=== PATIENT | male | born 1970 | race Hispanic/Latino ===

== ENCOUNTER 2019-08-30 14:51 | Inpatient (IN) | payer SELFPAY ==
[2019-08-30] VITALS (7 sets, daily range): BP systolic 83–146; BP diastolic 53–85; PULSE 81–103; RESP 14–20; TEMP 36.4–37.3; O2SAT 98–99; BMI 34.7
--- NOTE | ~2019-08-30 | US_ITS ---
EXAMINATION: US renal BI DATE: 08/31/2019 14:59 INDICATION: Elevated creatinine TECHNIQUE: Multiple grayscale and Doppler ultrasound images of the kidneys were obtained. COMPARISON: None. FINDINGS: The right kidney measures 12.7 x 5.6 x 5.7 cm. The left kidney measures 11.1 x 6.2 x 6.6 cm . The kidneys demonstrate normal parenchymal echogenicity. There is no hydronephrosis. The bladder is normal. IMPRESSION: 1. Normal kidneys without hydronephrosis. Reviewed, dictated and finalized at location A.
--- NOTE | ~2019-08-30 | CT_ITS ---
EXAMINATION: CT brain wo con EXAM DATE: 08/30/2019 16:37 INDICATION: Headache, visual disturbance. Pain. TECHNIQUE: Spiral CT of the head was performed without contrast. Axial, coronal and sagittal images were reviewed. The dose-length product (DLP) for this examination was 605.33 mGy-cm. The exposure w as tailored according to patient size, and iterative reconstruction (ASIR) was used as additional dos e reduction technique. There is no prior study for comparison. FINDINGS: There is no acute intraparenchymal hemorrhage. No evidence of intraparenchymal brain mass lesion. No evidence of acute infarction. Please note that initial head CT has limited sensitivity f or small or acute infarctions. There is mild periventricular and subcortical hypodensity, nonspecific but probably related to small vessel ischemic disease. There is intracranial carotid arteriosclero sis. There are no extra-axial collections. There is no mass effect or midline shift. The orbits ar e unremarkable. Soft tissue is unremarkable. The visualized sinuses and mastoid air cells are well aerated. IMPRESSION: 1. No acute intracranial findings. 2. Chronic age related findings. Reviewed, dictated and finalized at location A.
--- NOTE | ~2019-08-30 | CT_ITS ---
EXAMINATION: CT abdomen pelvis wo con DATE: 08/30/2019 16:37 INDICATION: Abdominal pain TECHNIQUE: Computed tomography (CT) of the abdomen and pelvis was performed without intravenous contr ast. Automated exposure control and iterative reconstruction technique were employed. Exam dose: 117 2.38 mGy-cm total exam DLP. COMPARISON: None. FINDINGS: The lung bases are clear of infiltrate or consolidation. Normal heart size. No pericardial or pleural effusion. The liver, gallbladder, bile ducts, pancreas, pancreatic duct, spleen, and adrenal glands and kidneys are unremarkable on this limited noncontrast examination. No urinary tract calculus or hydroureteron ephrosis. Normal caliber of the abdominal aorta. No intraperitoneal or retroperitoneal or pelvic mass lesion or adenopathy or ascites. Normal appendix. No bowel obstruction, bowel wall thickening, pneumatosis or intraperitoneal free air . Small fat-containing umbilical hernia. Included skeletal structures are unremarkable other than some degenerative changes of the thoracic an d lumbar spine. IMPRESSION: No significant abnormality Reviewed, dictated and finalized at Location A. Reviewed, dictated and finalized at location B. IMPRESSION: No significant abnormality
--- NOTE | ~2019-08-30 | XR_ITS ---
EXAMINATION: XR chest 1V portable EXAM DATE: 08/30/2019 15:55 INDICATION: Headache for one week. TECHNIQUE: Portable AP frontal chest x-ray was obtained. There is no prior study for comparison. FINDINGS: The lungs are clear. There are no pleural effusions. Cardiac silhouette is prominent but magnified on this AP technique. There is no pneumothorax suspected. The bones and soft tissues are unremarkable. IMPRESSION: No acute cardiopulmonary findings. Reviewed, dictated and finalized at location A.
--- NOTE | ~2019-08-30 | MR_ITS ---
EXAMINATION: MR brain/brain stem wo con EXAM DATE: 08/31/2019 15:12 INDICATION: Visual changes. Headache for 2 weeks. TECHNIQUE: Magnetic resonance imaging (MRI) of the brain/brain stem obtained without contrast. James[place] al T1, axial diffusion, gradient echo (T2*), T1, T2, FLAIR sequences obtained. There is no prior st udy for comparison. FINDINGS: There are no areas of restricted diffusion to suggest acute infarction. There is no acute hemorrhage seen on the T2*, a hemosiderin sensitive sequence. No intraparenchymal brain mass. The ve ntricles are normal in size. There are no extra-axial collections. Flow voids are seen in the cereb ral arteries on the T2-weighted sequences consistent with their expected patency. The orbits are unr emarkable. Soft tissue is unremarkable. IMPRESSION: 1. Unremarkable brain MRI examination. Reviewed, dictated and finalized at location A.
--- NOTE | 2019-08-30 15:40 | PC.NURSE ---
Interpeter used to explain ekg, urinal- urine specimen need, iv insertion and lab draw. Pt has no questions at this time.
[2019-08-30 15:41] LABS: Basophils Absolute Auto 0.1 K/mm3 (0.0-0.1); Basophils Percent Auto 0.3 % (0.2-1.2); Eosinophils Absolute Auto 0.2 K/mm3 (0-0.3); Eosinophils Percent Auto 1.5 % (0-4.4); Hematocrit 31.7 % (42.0-52.0); Hemoglobin 10.4 g/dL (14.0-18.0); Immature Granulocyte Absolute 0.06 K/mm3 (0.00-0.031); Immature Granulocyte Percent A 0.4 % (0-0.5); Lymphocytes Absolute Auto 2.03 K/mm3 (0.9-3.2); Mean Corpuscular HGB Conc 32.8 g/dl (32-36); Mean Corpuscular Hemoglobin 29.7 pg (26-34); Mean Corpuscular Volume 90.6 fl (80-100); Mean Platelet Volume 10.5 fl (7.4-10.4); Monocytes Percent Auto 6.9 % (2.6-8.5); Neutrophils Absolute Auto 11.2 K/mm3 (1.3-6.7); Neutrophils Percent Auto 76.9 % (45.5-73.1); Platelet Count Result 228 k/mm3 (150-375); Red Cell Distribution Width 13.6 % (11.5-14.5); White Blood Count 14.6 K/mm3 (4.5-10.0)
--- NOTE | 2019-08-30 15:44 | ECG_ITS ---
Measurements Intervals [place] Rate: 97 P: 32 HI: 148 QRS: 28 QRSD: 93 T: 44 QT: 310 QTc: 394 Interpretive Statements SINUS RHYTHM NORMAL ECG Electronically Signed On 08-31-2019 6:53:18 CDT by De Roca D.O.
[2019-08-30] MEDS: SODIUM CHLORIDE 0.9% IV 1,000 ML 999 ML IV CONT ×2 (15:47→17:07)
--- NOTE | 2019-08-30 15:50 | ED.GENADULT ---
HPI - General Adult General Chief complaint: Headache <Jairo Banegas PA-C - Last Filed: 08/30/19 17:37> Stated complaint: headache <Jairo Banegas PA-C - Last Filed: 08/30/19 17:37> Time Seen by Provider: 08/30/19 15:03 <Jairo Banegas PA-C - Last Filed: 08/30/19 17:37> Source: patient, family and mechanical technician <Jairo Banegas PA-C - Last Filed: 08/30/19 17:37> Mode of arrival: ambulatory <Jairo Banegas PA-C - Last Filed: 08/30/19 17:37> Limitations: language barrier <Jairo Banegas PA-C - Last Filed: 08/30/19 17:37> History of Present Illness HPI narrative: Patient is a 49-year-old male who presents to emergency department for evaluation of diffuse headache and neck pain for the last week had similar occurrence and was seen at an outside hospital and was given ibuprofen with improvement. Patient notes that he has had some intermittent belly pain but denies any current abdominal pain. Denies any URI symptoms . Denies injury or trauma. Has not seen primary care for this . Patient notes that nothing currently has made the pain better or worse other than ibuprofen. Patient notes he has had these symptoms on and off for the last several months. Patient presents in no distress per private vehicle with normal gait . Patient notes he has been compliant with his medications. Patient denies any medication changes. <Jairo Banegas PA-C - Last Filed: 08/30/19 17:37> Related Data Allergies/adverse reactions: Allergies Allergy/AdvReac Type Severity Reaction Status Date / Time No Known Allergies Allergy Verified 08/30/19 14:59 <Jairo Banegas PA-C - Last Filed: 08/30/19 17:37> Review of Systems Review of Systems: All systems reviewed & are unremarkable except as noted in HPI and below <Jairo Banegas PA-C - Last Filed: 08/30/19 17:37> PMFSH Past Medical History Medical History: Medical History Hyperlipidemia Hypertension Tobacco abuse <Jairo Banegas PA-C - Last Filed: 08/30/19 17:37> Social History Social History: Social History Smoking status: Current every day smoker <Jairo Banegas PA-C - Last Filed: 08/30/19 17:37> Exam Narrative: Exam Narrative: GENERAL: Well-appearing, well-nourished, and in no acute distress. HEAD: Normocephalic, atraumatic. EYES: PERRLA and EOMI. ENT: Nares clear, no rhinorrhea or epistaxis. Mucous membranes moist. CHEST: Clear to auscultation. No respiratory distress. No wheezes rales or rhonchi HEART: Regular rate and rhythm. No murmur heard. Normal peripheral pulses. ABDOMEN: Soft, nontender, distended EXTREMITIES: Normal range of motion. No edema. SKIN: Warm, dry, no rash. NEURO: No focal deficits. Alert and oriented x3. Cranial nerves II through XII grossly intact. Normal speech and gait PSYCH: Normal mood and affect. <Jairo Banegas PA-C - Last Filed: 08/30/19 17:37> Course Course Emergency Course: Patient in the room at this time aware of case findings treatment plan and diagnosis. Patient aware of case findings treatment plan and diagnosis mechanical technician was used to communicate with the patient aware of discussions with nephrology and hospitalist service. Patient agreeing to stay in hospital for his acute kidney injury. Patient hydrated in the emergency department and had correction of his hyperkalemia as well <Jairo Banegas PA-C - Last Filed: 08/30/19 17:37> SOUND ENGINEER AUDIO CONTROL/PA Physician Supervision Attestation for Jairo Banegas. [id number] with the patient the patient's , and a friend interprets for us.I explained that he was dehydrated, with kidney damage. We will fix his potassium salt, and get the kidney specialist involved and give him more IV fluids. He and his understand and had the opportunity to ask questions. <Miryam Denny MD - Last Filed: 08/08
[2019-08-30 15:51] LABS: INR 1.1; Prothrombin Time 13.6 Seconds (11.1-14.7)
[2019-08-30 15:52] LABS: Partial Thromboplastin Time 25.9 SECONDS (22.3-36.8)
[2019-08-30 16:04] LABS: Alanine Aminotransferase 17 U/L (4-50); Albumin Level 4.1 g/dL (3.5-5.1); Alkaline Phosphatase 106 U/L (38-126); Anion Gap 20.1 mmol/L (7-16); Aspartate Amino Transferase 18 U/L (17-59); Bilirubin,Total 0.6 mg/dL (0.2-1.3); Blood Urea Nitrogen 82 mg/dL (9-20); Calcium 8.6 mg/dL (8.4-10.2); Carbon Dioxide 19 mmol/L (22-30); Chloride 102 mmol/L (98-107); Estimated Glomerular Filt Rate 12; Glucose 127 mg/dL (75-110); Lipase 218 U/L (23-300); Potassium 6.1 mmol/L (3.4-5.0); Sodium 135 mmol/L (137-145)
[2019-08-30 16:12] LABS: Troponin I < 0.012 ng/mL (0.000-0.034)
--- NOTE | 2019-08-30 16:28 | PM.IMHP ---
H&P: HPI History of Present Illness Chief complaint: headache Narrative: Howard Patel is a 49 year old male [facility] Past Medical History Medical History (Updated 08/30/19 @ 16:23 by Miryam Denny MD) Hyperlipidemia Hypertension Tobacco abuse Social History Social History (Updated 08/30/19 @ 15:53 by Jairo Banegas PA-C) Smoking status: Current every day smoker Meds Home Medications and Allergies Allergies Allergy/AdvReac Type Severity Reaction Status Date / Time No Known Allergies Allergy Verified 08/30/19 14:59 Vital Signs Vital Signs - 24 hr 08/30/19 14:57 08/30/19 15:25 Temperature 99.1 F Pulse Rate 103 H 97 Respiratory Rate 20 15 Blood Pressure 146/85 H 83/53 L Pulse Oximetry 99 99 H&P: Results Labs Labs: Short CBC 08/30/19 Range/Units 15:30 WBC 14.6 H (4.5-10.0) K/mm3 Hgb 10.4 L (14.0-18.0) g/dL Hct 31.7 L (42.0-52.0) % Plt Count 228 (150-375) k/mm3 BMP 08/30/19 15:30 Sodium 135 L Potassium 6.1 H* Chloride 102 Carbon Dioxide 19 L BUN 82 H Creatinine 5.00 H Glucose 127 H Calcium 8.6 Cardiac Enzymes 08/30/19 Range/Units 15:30 Troponin I < 0.012 (0.000-0.034) ng/mL Liver Function 08/30/19 Range/Units 15:30 Total Bilirubin 0.6 (0.2-1.3) mg/dL AST 18 (17-59) U/L ALT 17 (4-50) U/L Alkaline Phosphatase 106 (38-126) U/L Albumin 4.1 (3.5-5.1) g/dL
--- NOTE | 2019-08-30 16:32 | PC.NURSE ---
attempted to medicate pt, pt in ct, will medicate per provider order upon return.
[2019-08-30] MEDS: CALCIUM GLUCONATE 1,000 MG/10 ML VIAL 1000 MG IV PUSH (16:40)
[2019-08-30] MEDS: DEXTROSE 50% 25 GM/50 ML SYRINGE IV PUSH (16:40)
[2019-08-30] MEDS: INSULIN HUMAN REGULAR (*BKC) 100 UNITS/ML 10 UNITS IV PUSH (16:40)
[2019-08-30 17:58] LABS: Anion Gap 17.3 mmol/L (7-16); Blood Urea Nitrogen 79 mg/dL (9-20); Carbon Dioxide 18 mmol/L (22-30); Chloride 106 mmol/L (98-107); Estimated Glomerular Filt Rate 14; Glucose 132 mg/dL (75-110); Potassium 5.3 mmol/L (3.4-5.0); Sodium 136 mmol/L (137-145)
--- NOTE | 2019-08-30 18:35 | ADMGEN ---
This patient, Howard Patel, was admitted to Medical Room 342-01. Patient/family oriented to hospital policies and general routines including ID bracelet, bed and alarms, visiting hours, pain management, procedures, bathroom and other care routines, personal items, smoking policy, room service/diet, and visiting hours. Valuables list has been completed. Information on how to activate the Rapid Response Team has been discussed. Patient/Family are encouraged to report perceived risks to care and to ask questions if they do not understand what they are told or what they should do.
[2019-08-30] MEDS: LACTATED RINGERS 1,000 ML 125 ML IV CONT (18:54)
--- NOTE | 2019-08-30 19:15 | PM.IMHP ---
H&P: HPI History of Present Illness Chief complaint: Headache. Narrative: Howard Patel is a 49-year-old male with benign prostatic hyperplasia, type 2 diabetes mellitus, hypertension, and hyperlipidemia presented to the emergency department earlier this afternoon via private vehicle from home for evaluation of a headache. He is Bulgarian-speaking and thus the following history was obtained with the aid of an compound mixer. He reports a daily headache for approximately 2 weeks time, located in a bandlike fashion around the head. He has a difficult time describing the headache, but he indicates that it radiates into his neck and on occasion it feels like it goes all the way down his back and into his lower abdomen. At times it sounds as though he has photosensitivity, and over the last 2 days he has had blurry vision when out in the heat. He was seen in and discharged from the emergency department at [facility] a couple of weeks ago, and at that time he was told that he had evidence of kidney failure. Since that time he has been taking ibuprofen for his headaches on a daily basis, taking upwards of 800 milligrams of ibuprofen 4 to 5 times a day. Today his BUN and creatinine or 82 in 5.00 respectively, and he is being admitted in this setting. He is frequently outdoors for his job and he wears heavy clothing and thus he sweats quite a bit at work, although he does try to stay hydrated. His appetite has been as per usual and he has not noticed a decrease in urine output or change in his urine color. He denies symptoms of BPH at this time. No new change in medication or addition to his medication regimen. At this time he has no complaints of headache. Review of Systems Review of Systems: Narrative: 12 systems were reviewed with pertinent positives and negatives as per HPI. He denies fever and chills. He denies overt lightheadedness and dizziness.No sinus congestion, rhinorrhea, otalgia, or odynophagia. He has had a mild cough which is nonproductive. No chest pain, fluttering, or feelings of racing heart. He denies shortness of breath. No recent travel or sick contacts. He denies dysuria and hematuria. No diarrhea. He believes his diabetes is well controlled. Except as documented, all other systems were reviewed and are negative. [facility] Past Medical History Medical History (Updated 08/30/19 @ 21:31 by Emily Palm PA-C) Benign prostatic hyperplasia Diabetic peripheral neuropathy Hyperlipidemia Hypertension Insulin dependent type 2 diabetes mellitus Tobacco abuse Surgical History Surgical History (Updated 08/30/19 @ 21:18 by Emily Palm PA-C) No history of previous surgery Family History Family History (Updated 08/30/19 @ 21:18 by Emily Palm PA-C) Other Diabetes mellitus Hypertension Social History Social History (Updated 08/30/19 @ 21:20 by Emily Palm PA-C) Social History: The patient lives in [place] with his . 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 he will occasionally smoke a cigarette or two here and there. He denies alcohol and illicit substance use. He designates his as his surrogate decision maker and he wishes to be a full code. Spiritual care concerns: No Meds Home Medications and Allergies Home Medications Medication Instructions Recorded Confirmed Type albuterol sulfate [Ventolin HFA] 90 mcg INHALATION Q4HWA 08/30/19 08/30/19 History aspirin 81 mg PO DAILY 08/30/19 08/30/19 History atorvastatin 20 mg PO DAILY 08/30/19 08/30/19 History empagliflozin [Jardiance] 10 mg PO DAILY 08/30/19 08/30/19 History fluticasone propionate [Flovent 2 puff INHALATION BID 08/30/19 08/30/19 History HFA] gabapentin 600 mg PO TID 08/30/19 08/30/19 History insulin NPH isoph U-100 human unit SUBCUT BID 08/30/19 History [Novolin N NPH U-100 Insulin] lisinopril 2.5 mg PO DAILY 08/30/19 08/30/19 History metformin 1,000 mg PO DAILY 08/30/19 08/30/19 History
[2019-08-30] MEDS: FAMOTIDINE 20 MG/2 ML VIAL IV PUSH (20:08)
[2019-08-30] MEDS: SODIUM POLYSTYRENE SULFONONATE 15 GM/60 ML BTL 30 GM PO (20:08)
[2019-08-30 22:00] LABS: Glucose Point of Care 116 (65-105)
[2019-08-30 22:15] LABS: Potassium 5.2 mmol/L (3.4-5.0)
[2019-08-30 22:19] LABS: Creatine Kinase 235 U/L (55-170)
[2019-08-30 22:22] LABS: Hemoglobin A1C 10.1 % (<5.7)
[2019-08-30 22:37] LABS: Iron 24 ug/dL (49-181)
[2019-08-30 22:46] LABS: Percent Iron Saturation 8 % (20-50)
[2019-08-30 23:25] LABS: Folic Acid 12.1 ng/mL (2.76->20)
[2019-08-31] VITALS (8 sets, daily range): BP systolic 103–147; BP diastolic 71–73; PULSE 65–91; RESP 12–16; TEMP 36.8–37.1; O2SAT 98–100
[2019-08-31] MEDS: LACTATED RINGERS 1,000 ML 125 ML IV CONT ×2 (03:31→12:06)
[2019-08-31 06:26] LABS: Basophils Percent Auto 0.4 % (0.2-1.2); Eosinophils Absolute Auto 0.2 K/mm3 (0-0.3); Eosinophils Percent Auto 1.9 % (0-4.4); Hematocrit 28.8 % (42.0-52.0); Hemoglobin 9.4 g/dL (14.0-18.0); Immature Granulocyte Absolute 0.03 K/mm3 (0.00-0.031); Immature Granulocyte Percent A 0.3 % (0-0.5); Lymphocytes Absolute Auto 1.81 K/mm3 (0.9-3.2); Mean Corpuscular HGB Conc 32.6 g/dl (32-36); Mean Corpuscular Hemoglobin 29.7 pg (26-34); Mean Corpuscular Volume 90.9 fl (80-100); Mean Platelet Volume 10.4 fl (7.4-10.4); Monocytes Absolute Auto 0.6 K/mm3 (0.1-0.6); Neutrophils Absolute Auto 6.4 K/mm3 (1.3-6.7); Neutrophils Percent Auto 70.4 % (45.5-73.1); Platelet Count Result 210 k/mm3 (150-375); Red Blood Count 3.17 M/mm3 (4.6-6.20); Red Cell Distribution Width 13.6 % (11.5-14.5); White Blood Count 9.1 K/mm3 (4.5-10.0)
[2019-08-31 06:44] LABS: Anion Gap 13.1 mmol/L (7-16); Blood Urea Nitrogen 70 mg/dL (9-20); Calcium 8.4 mg/dL (8.4-10.2); Carbon Dioxide 21 mmol/L (22-30); Chloride 109 mmol/L (98-107); Creatine Kinase 213 U/L (55-170); Estimated CRCL calculation 39 ml/min; Estimated Glomerular Filt Rate 29; Glucose 123 mg/dL (75-110); Magnesium 1.8 mg/dL (1.6-2.3); Phosphorus 3.5 mg/dL (2.5-4.5); Potassium 5.1 mmol/L (3.4-5.0); Sodium 138 mmol/L (137-145)
[2019-08-31] MEDS: ALBUTEROL SULFATE (*SP) AEROSOL 1 PUFF INHALATION ×5 (07:40→23:43)
[2019-08-31] MEDS: FLUTICASONE PROP 44 MCG (*SP) 10.6 GM 2 PUFF INHALATION ×2 (07:43→21:14)
[2019-08-31 07:55] LABS: Glucose Point of Care 130 (65-105)
[2019-08-31] MEDS: ASPIRIN 81 MG ENTERIC TABLET PO (08:25)
[2019-08-31] MEDS: ATORVASTATIN 20 MG TABLET PO (08:25)
[2019-08-31] MEDS: TAMSULOSIN HCL 0.4 MG CAPSULE PO (08:26)
[2019-08-31] MEDS: GABAPENTIN 300 MG CAPSULE 600 MG PO ×3 (08:26→16:48)
[2019-08-31] MEDS: FAMOTIDINE 20 MG/2 ML VIAL IV PUSH ×2 (08:26→20:27)
--- NOTE | 2019-08-31 12:24 | PM.IMPN ---
Progress Note: A&P Assessment and Plan (1) Acute renal failure: Qualifiers: Acute renal failure type: unspecified Qualified Code(s): N17.9 - Acute kidney failure, unspecified Code(s): N17.9 - Acute kidney failure, unspecified Status: Acute Assessment and Plan: Likely multifactorial in etiology to include dehydration and hypoperfusion from hypotension in the setting of NSAID and CASTILLO inhibitor use. He may very well have underlying chronic kidney disease as well given his hypertension and diabetes. No hydronephrosis noted on CT of the abdomen and pelvis. Continue IV fluid rehydration with strict monitoring of I/O. Avoiding NSAIDs and other nephrotoxic medications Lisinopril and metformin on hold currently. Continue to monitor renal function closely Dr. Mendes was consulted from the ED and his recommendations are appreciated. (2) Hyperkalemia: Code(s): E87.5 - Hyperkalemia Status: Acute Assessment and Plan: He received appropriate treatment in the ED, with improvement on repeat labs. Potassium 5.1 today. Continue IV fluid rehydration Continue to monitor potassium levels closely (3) Headache: Qualifiers: Headache chronicity pattern: unspecified pattern Headache type: unspecified Intractability: not intractable Qualified Code(s): R51 - Headache Code(s): R51 - Headache Status: Acute Assessment and Plan: Brain CT showed no acute findings. He complained of ongoing all-over headache for approximately 2 weeks. His headache has since resolved entirely, although he did mention some white spots that appeared throughout his visual field that would come and go with his headache. His vision is normal today. Will obtain brain MRI with and without contrast given visual changes. 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 Blood sugars have been well controlled thus far. Continue sliding scale insulin, Accu-Cheks, and hypoglycemic protocol. His jardiance is nonformulary Metformin is currently on hold (5) Benign prostatic hyperplasia: Code(s): N40.0 - Benign prostatic hyperplasia without lower urinary tract symptoms Status: Acute Assessment and Plan: No urinary symptoms. Continue tamsulosin. Subjective Date/time seen: 07/24/20 12:24 Interval history: Date of service: 08/31/2019 Communication performed via assistance of video nursery supervisor. Patient reports he is feeling better today. His headache has resolved entirely. He notes that he had been having visual changes associated with his headache, but this has also resolved and his vision is normal at this time. He denies abdominal nausea, vomiting, fever, chills, dizziness, lightheadedness, weakness, or fatigue. He is not in any pain. He had a BM this morning. His urine is clear and he denies dysuria or hematuria. He has been eating well. Review of Systems Review of Systems: Narrative: A 12 point review of systems was reviewed with pertinent positives and negatives as per HPI. Exam Narrative: Exam Narrative: Mr. Romo is examined alone today. He is a well nourished 49 year old male who is lying supine in bed. He appears comfortable and is in NARD. HR 79, BP 103/73, RR 15, T 98.3, 98% on room air Neuro: awake, alert and oriented x4, speech clear, no focal neuro deficits noted, normal sensation, strength 5/5 throughout HEENMT: normocephalic, atraumatic, EOMI, sclerae anicteric, moist oral mucosa, tongue midline Neck: supple, no lymphadenopathy Respiratory: clear to auscultation bilaterally, nonlabored breathing Cardio: regular rate, regular rhythm with S1-S2 Abdomen: nondistended, normoactive bowel sounds, soft,
[2019-08-31 13:05] LABS: Glucose Point of Care 202 (65-105)
[2019-08-31] MEDS: INSULIN ASPART (*BKC) 100 UNITS/ML SUB-Q (13:29)
--- NOTE | 2019-08-31 13:36 | PM.CNNEP ---
Assessment and Plan Assessment and plan (1) Acute renal failure: Qualifiers: Acute renal failure type: unspecified Qualified Code(s): N17.9 - Acute kidney failure, unspecified Code(s): N17.9 - Acute kidney failure, unspecified Status: Acute Assessment and Plan: The patient has acute kidney injury. He has several issues that would contribute to this. His blood pressure was low on admission And has probably been low at home as well. he is dehydrated. Probably from the diarrhea he had as well as not eating and drinking properly. He has been on ibuprofen. He is on an CASTILLO-inhibitor which of course exaggerated at the rise of the creatinine for each state of dehydration but does not directly hurt the kidneys. There other causes of renal failure as well, such as obstruction, glomerulonephritis, or interstitial nephritis but he has no signs or symptoms of any of these. At this point will get an ultrasound, urine electrolytes and eosinophils. Depending on how much protein he has we might consider doing further workup for the proteinuria. He is on lisinopril already and is on Jardiance both of which are good for the kidneys. (2) Hyperkalemia: Code(s): E87.5 - Hyperkalemia Status: Acute Assessment and Plan: The patient had a high potassium. This is most likely due to his renal failure. (3) Headache: Qualifiers: Headache chronicity pattern: unspecified pattern Headache type: unspecified Intractability: not intractable Qualified Code(s): R51 - Headache Code(s): R51 - Headache Status: Acute Assessment and Plan: The patient had headache. Head CT was negative. (4) Insulin dependent type 2 diabetes mellitus: Code(s): E11.9 - Type 2 diabetes mellitus without complications; Z79.4 - longterm (current) use of insulin Status: Acute Assessment and Plan: The patient has diabetes. On sliding scale insulin. (5) Benign prostatic hyperplasia: Code(s): N40.0 - Benign prostatic hyperplasia without lower urinary tract symptoms Status: Acute Assessment and Plan: He is on tamsulosin History of Present Illness Reason for Consult Consult date: 08/31/19 Chief Complaint Chief complaint: Headache. History of Present Illness Narrative: Howard is a very pleasant 49-year-old gentleman who has diabetes without retinopathy, reversible airways disease, hyperlipidemia, diabetic neuropathy, and prostatic hypertrophy. The patient came to the emergency room here because he had a headache. He says that he has had a poor appetite and also had some diarrhea yesterday as well. This is all been going on for couple of weeks. He came to the emergency room and they found that his creatinine was elevated so he was admitted. He is getting IV fluids and his creatinine is a little bit better. He says 1 year ago he went to the hospital with similar complaints, headache diarrhea poor appetite. At that time he was told he had renal failure as well. They gave him IV fluids and he got better. Apparently he also went to [facility] emergency room a couple of weeks ago and they told him he had abnormal kidneys as well. In the last few days he has been having headaches so his been taking ibuprofen on a daily basis. He still denies any bloody urine foamy urine kidney stones or bladder infections. He does have some prostate problems and is on tamsulosin. He says he has been making plenty of urine. He does not smoke or drink, however the admission history and physical says he does smoke a cigarette or two every once in a while. Review of Systems Constitutional: Constitutional: Reports no additional constitutional complaints Eyes: Eyes: Reports no additional eye complaints ENT: Reports system reviewed and no additional complaints, except as documented Cardiovascular: Cardiovascular: Reports no additional cardiovascular c
[2019-08-31] MEDS: SODIUM CHLORIDE 0.9% IV 1,000 ML 125 ML IV CONT ×2 (15:39→23:56)
[2019-08-31 16:57] LABS: Glucose Point of Care 172 (65-105)
[2019-09-01] VITALS (7 sets, daily range): BP systolic 130–153; BP diastolic 68–85; PULSE 63–81; RESP 16–20; TEMP 36–36.8; O2SAT 98–100
[2019-09-01 02:33] LABS: Creatinine Urine 47.7 mg/dL; Total Protein Urine Random 23 mg/dL
[2019-09-01 02:37] LABS: Sodium Urine Random 103 meq/L
[2019-09-01 02:56] LABS: Glucose Point of Care 127 (65-105)
[2019-09-01 03:42] LABS: Add Urine Microscopic? YES; Appearance Urine Clear (Clear); Bacteria Urine 2+ /hpf; Bilirubin Urine Negative (Negative); Blood Urine Negative (Negative); Glucose Urine UA 3+ mg/dL (Negative); Ketones Urine Negative (Negative); Leukocyte Esterase Ur Negative LEU/UL (NEGATIVE); Nitrate Urine Negative (Negative); Protein Urine Negative (Negative); RBC Urine 0-2 /hpf (0-2); Specific Grav Ur 1.012 (1.001-1.035); Squamous Epithelial Cell Urine Occasional /hpf (Few); Urobilinogen Urine Negative mg/dL (<2.0); WBC Urine 0-3 /hpf (0-3)
[2019-09-01 04:01] LABS: Color Urine Light Yellow (Yellow)
[2019-09-01 06:33] LABS: Basophils Percent Auto 0.6 % (0.2-1.2); Eosinophils Absolute Auto 0.2 K/mm3 (0-0.3); Eosinophils Percent Auto 2.6 % (0-4.4); Hematocrit 29.5 % (42.0-52.0); Hemoglobin 9.7 g/dL (14.0-18.0); Immature Granulocyte Absolute 0.03 K/mm3 (0.00-0.031); Immature Granulocyte Percent A 0.5 % (0-0.5); Lymphocytes Absolute Auto 1.84 K/mm3 (0.9-3.2); Lymphocytes Percent Auto 28.4 % (18.3-44.2); Mean Corpuscular HGB Conc 32.9 g/dl (32-36); Mean Corpuscular Hemoglobin 29.5 pg (26-34); Mean Corpuscular Volume 89.7 fl (80-100); Mean Platelet Volume 10.2 fl (7.4-10.4); Monocytes Absolute Auto 0.5 K/mm3 (0.1-0.6); Monocytes Percent Auto 8.3 % (2.6-8.5); Neutrophils Absolute Auto 3.9 K/mm3 (1.3-6.7); Neutrophils Percent Auto 59.6 % (45.5-73.1); Platelet Count Result 226 k/mm3 (150-375); Red Blood Count 3.29 M/mm3 (4.6-6.20); Red Cell Distribution Width 13.3 % (11.5-14.5); White Blood Count 6.5 K/mm3 (4.5-10.0)
[2019-09-01 07:15] LABS: Alanine Aminotransferase 17 U/L (4-50); Albumin Level 3.7 g/dL (3.5-5.1); Alkaline Phosphatase 62 U/L (38-126); Anion Gap 11.6 mmol/L (7-16); Aspartate Amino Transferase 21 U/L (17-59); Bilirubin,Total 0.3 mg/dL (0.2-1.3); Blood Urea Nitrogen 35 mg/dL (9-20); Calcium 8.8 mg/dL (8.4-10.2); Carbon Dioxide 24 mmol/L (22-30); Chloride 109 mmol/L (98-107); Estimated CRCL calculation 82 ml/min; Estimated Glomerular Filt Rate > 60; Glucose 125 mg/dL (75-110); Magnesium 1.6 mg/dL (1.6-2.3); Potassium 4.6 mmol/L (3.4-5.0); Sodium 140 mmol/L (137-145)
[2019-09-01 07:48] LABS: Glucose Point of Care 123 (65-105)
[2019-09-01] MEDS: SODIUM CHLORIDE 0.9% IV 1,000 ML 125 ML IV CONT (08:20)
[2019-09-01] MEDS: TAMSULOSIN HCL 0.4 MG CAPSULE PO (08:23)
[2019-09-01] MEDS: ATORVASTATIN 20 MG TABLET PO (08:23)
[2019-09-01] MEDS: ASPIRIN 81 MG ENTERIC TABLET PO (08:23)
[2019-09-01] MEDS: GABAPENTIN 300 MG CAPSULE 600 MG PO ×2 (08:23→13:01)
[2019-09-01] MEDS: FAMOTIDINE 20 MG/2 ML VIAL IV PUSH (08:23)
[2019-09-01] MEDS: FLUTICASONE PROP 44 MCG (*SP) 10.6 GM 2 PUFF INHALATION (08:44)
[2019-09-01] MEDS: ALBUTEROL SULFATE (*SP) AEROSOL 1 PUFF INHALATION ×2 (08:44→13:19)
[2019-09-01 11:41] LABS: Glucose Point of Care 192 (65-105)
--- NOTE | 2019-09-01 16:10 | PM.DS ---
DS: Admitting Diagnosis Admitting Diagnosis Admitting Diagnosis: Acute kidney failure, unspecified DS: Discharge Diagnosis Discharge Diagnosis (1) Acute renal failure: Qualifiers: Acute renal failure type: unspecified Qualified Code(s): N17.9 - Acute kidney failure, unspecified Code(s): N17.9 - Acute kidney failure, unspecified Status: Acute Assessment and Plan: (2) Hyperkalemia: Code(s): E87.5 - Hyperkalemia Status: Acute (3) Headache: Qualifiers: Headache chronicity pattern: unspecified pattern Headache type: unspecified Intractability: not intractable Qualified Code(s): R51 - Headache Code(s): R51 - Headache Status: Acute (4) Insulin dependent type 2 diabetes mellitus: Code(s): E11.9 - Type 2 diabetes mellitus without complications; Z79.4 - long term care social worker (current) use of insulin Status: Acute Assessment and Plan: A1c is 10.1. He will need to follow-up with his PCP outpatient to obtain better glycemic control. (5) Benign prostatic hyperplasia: Code(s): N40.0 - Benign prostatic hyperplasia without lower urinary tract symptoms Status: Acute (6) Iron deficiency anemia: Code(s): D50.9 - Iron deficiency anemia, unspecified Status: Acute Assessment and Plan: He was advised to follow-up with Dr. Monsalve for a colonoscopy and iron supplementation was provided. DS: Summary Hospital Course Reason for hospitalization: Headache Hospital Course: Mr. Patel is a 49 y.o. Welsh-speaking male with PMH significant for benign prostatic hyperplasia, T2DM, hypertension, and hyperlipidemia who presented to the emergency department for the evaluation of headache for two weeks (bandlike, radiating into neck/back) with associated photosensitivity and blurred vision. Refer to the H&P for additional information. He was taking 800mg of ibuprofen 4-5x/day for relief. Initial workup on presentation to the ED revealed WBC 14,600 with neutrophil predominance, Hb 10.4, Hct 31.7, sodium 135, potassium 6.1, chloride 102, CO2 19, BUN 8, Cr 5.0, bilirubin 0.6, AST 18, ALT 17, ALP 106, troponin <0.012, CK 235, UA with 3+ glucose and 2+ bacteria, CXR ith no acute findings, head CT with chronic age related findings and no acute intracranial abnormalities, and unremarkable CT abd/pelvis. He was treated with kayexalate for his hyperkalemia and IV fluids and admitted to the hospitalist service for HERMINIO. Dr. Mendes with nephrology was consulted. His HERMINIO was felt to be multifactorial due to dehydration, hypotension, ibuprofen, and CASTILLO-inhibitor use in the setting of the aformentioned issues. Renal US was performed with no evidence of hydronpehrosis. Brain MRI was performed and was unremarkable with no evidence of infarct, hemorrhage, or masses. His renal function improved with IV fluid rehydration and his Cr was 1.1 and BUN 35 on the day of discharge. He was cleared for discharge from a nephrology standpoint. His headaches resolved and were likely due to dehydration/HERMINIO. He felt much better and requested to go home. He was advised to start iron supplementation as iron studies were consistent with iron deficiency anemia. He was referred to Dr. Monsalve, GI, to schedule a screening colonoscopy due to the presence of REY and age. He was discharged in stable condition on the afternoon of 09/01/19. He was advised to have repeat labs in 1 week and follow-up with his primary care doctor. He was instructed to avoid heavy NSAID use and stay hydrated. Status at Discharge Functional status at discharge: independent ambulation Overall status at discharge: patient is back to baseline Time Spent with Patient Time attestation: Total time spent providing and/or coordinating discharge services: 35 minutes Exam Narrative: Exam Narrative: Vitals at presentation: Temp Pulse Resp BP Pulse Ox 99.1 F
[2019-09-01 16:29] LABS: Glucose Point of Care 200 (65-105)
== END 2019-09-01 14:40 | disposition home or self-care (01) | DRG 469 ==
LOC: ANHED 17:46 → ANH3MED 17:50
PROVIDERS: Emergency Medicine Emergency Medical Services; Internal Medicine Nephrology; Physician Assistant; Admitting Provider Internal Medicine; Emergency Provider Emergency Medicine; Visit Provider Physician Assistant
DX: N17.9 Acute kidney failure, unspecified (principal); E86.0 Dehydration; E87.5 Hyperkalemia; N40.0 Benign prostatic hyperplasia without lower urinary tract symptoms; R51 Headache; Z79.4 Long term (current) use of insulin; I95.9 Hypotension, unspecified; F17.210 Nicotine dependence, cigarettes, uncomplicated; E11.42 Type 2 diabetes mellitus with diabetic polyneuropathy; I10 Essential (primary) hypertension
CPT/HCPCS: 36415; 70450; 70551; 71045; 74176; 76775; 80048; 80053; 81001; 82550; 82570; 82607; 82728; 82746; 83036; 83540; 83550; 83690; 83735; 84100; 84132; 84156; 84300; 84443; 84484; 85025; 85610; 85730; 85999; 93005; 94640; 96361; 96374; 96375; 99285; A9270; J0131; J0610; J1815; J7030; J7120

== ENCOUNTER 2019-09-08 15:08 | Emergency (ER) | payer SELFPAY ==
[2019-09-08 15:09] VITALS: BP 137/75; PULSE 88; RESP 18; TEMP 36.6; O2SAT 98
--- NOTE | 2019-09-08 15:36 | ED.BACK ---
HPI - Back Pain/Injury General Chief Complaint: Back Pain/Injury Stated Complaint: back pain Time Seen by Provider: 09/08/19 15:18 History of Present Illness HPI Narrative: Pain in his neck and upper back for the past 3 days. Radiates into his head and causes headaches. He says that he was having this pain when he was admitted to the hospital a week ago for kidney failure, but nothing was done for hime. He has not made a follow-up appoinment with a PCP yet. Related Data Home Medications Medication Instructions Recorded Confirmed Flovent HFA 2 puff INHALATION BID 08/30/19 08/30/19 Jardiance 10 mg PO DAILY 08/30/19 08/30/19 Novolin N NPH U-100 Insulin 15 unit SUBCUT BID 08/30/19 08/31/19 albuterol sulfate [Ventolin HFA] 90 mcg INHALATION Q4HWA 08/30/19 08/30/19 aspirin 81 mg PO DAILY 08/30/19 08/30/19 atorvastatin 20 mg PO DAILY 08/30/19 08/30/19 gabapentin 600 mg PO TID 08/30/19 08/30/19 lisinopril 2.5 mg PO DAILY 08/30/19 08/30/19 tamsulosin 0.4 mg PO DAILY 08/30/19 08/30/19 Allergies Allergy/AdvReac Type Severity Reaction Status Date / Time No Known Allergies Allergy Verified 09/08/19 15:12 Review of Systems Review of Systems: All systems reviewed & are unremarkable except as noted in HPI and below Constitutional: Constitutional: Denies fever(s) Eyes: Eyes: Denies change in vision ENT: Denies sore throat Cardiovascular: Cardiovascular: Denies chest pain Respiratory: Respiratory: Denies dyspnea Gastrointestinal: Gastrointestinal: Denies abdominal pain, Denies nausea and Denies vomiting Genitourinary: Genitourinary: Denies dysuria Musculoskeletal: Musculoskeletal: Reports back pain Neurologic: Reports headache(s) [facility] Past Medical History Medical History Benign prostatic hyperplasia Diabetic peripheral neuropathy Hyperlipidemia Hypertension Insulin dependent type 2 diabetes mellitus Tobacco abuse Surgical History Surgical History No history of previous surgery Family History Family History Other Diabetes mellitus Hypertension Social History Social History Social History: The patient lives in [place] with his . 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 he will occasionally smoke a cigarette or two here and there. He denies alcohol and illicit substance use. He designates his as his surrogate decision maker and he wishes to be a full code. Spiritual care concerns: No Exam Const: General: no acute distress and alert Orientation/consciousness: patient oriented x3 HENMT: Head: normal to inspection Resp: Effort & Inspection: normal respiratory effort Auscultation: clear to auscultation bilaterally Cardio: Rate: regular rate Rhythm: regular rhythm Back/Spine/Pelvis: Other: Tender over paraspinal muscles, trapezius, and occiput bilaterally. Skin: General skin exam: normal color Rashes: no rashes Wounds: no wounds Neuro: General: patient oriented x3 and moves all extremities Speech: normal speech Extrem: General: normal to inspection and no edema Course Vital Signs Vital signs: Vital Signs Temperature 36.6 C 09/08/19 15:09 Pulse Rate 88 09/08/19 15:09 Respiratory Rate 18 09/08/19 15:09 Blood Pressure 137/75 09/08/19 15:09 Pulse Oximetry 98 09/08/19 15:09 Temperature 36.8 C 09/08/19 16:43 Pulse Rate 81 09/08/19 16:43 Respiratory Rate 16 09/08/19 16:43 Blood Pressure 141/69 H 09/08/19 16:43 Pulse Oximetry 99 09/08/19 16:43 Discharge Plan Discharge Clinical Impression: Neck pain, Back pain of thoracolumbar region Patient Disposition: Home, Self-Care Condition: Stable Instructions: Back Pain (ED) Additional Instructions: Follow-up with Marielle Yates as indicated on
[2019-09-08] MEDS: CYCLOBENZAPRINE HCL 10 MG TABLET PO (16:42)
[2019-09-08 16:43] VITALS: BP 141/69; PULSE 81; RESP 16; TEMP 36.8; O2SAT 99
== END 2019-09-08 16:43 | disposition home or self-care (01) ==
PROVIDERS: Emergency Provider Emergency Medicine
DX: M54.2 Cervicalgia (principal); M54.6 Pain in thoracic spine; M54.5 Low back pain; N40.0 Benign prostatic hyperplasia without lower urinary tract symptoms; E11.42 Type 2 diabetes mellitus with diabetic polyneuropathy; E78.5 Hyperlipidemia, unspecified; I10 Essential (primary) hypertension; F17.210 Nicotine dependence, cigarettes, uncomplicated
CPT/HCPCS: 99283; A9270

== ENCOUNTER 2019-10-03 20:54 | Observation (INO) | payer SELFPAY ==
[2019-10-03] VITALS (9 sets, daily range): BP systolic 76–115; BP diastolic 52–98; PULSE 89–114; RESP 12–20; TEMP 36.5; O2SAT 96–98
--- NOTE | ~2019-10-03 | CT_ITS ---
EXAMINATION: CT BRAIN W/O DATE: 10/03/2019 22:28 INDICATION: Headache after fall TECHNIQUE: Computed tomography (CT) of the head was performed without intravenous contrast. The dose- length product was 605.33 mGy-cm. Automated exposure control and iterative reconstruction technique w ere employed. COMPARISON: CT dated 08/30/2019 FINDINGS: Normal brain parenchymal volume for age. Normal alcala-white differentiation. No acute intrac ranial hemorrhage, infarction, mass or mass effect. No ventriculomegaly or midline shift. Midline sagittal images demonstrate a normal corpus callosum, c raniovertebral junction and sella turcica. Basilar cisterns are patent. Mucosal thickening of the ethmoid sinuses. Mastoids are pneumatized. No depressed skull fractures. IMPRESSION: 1. No acute intracranial abnormality. 2: Mild sinus disease. Reviewed, dictated and finalized at location A.
--- NOTE | ~2019-10-03 | XR_ITS ---
EXAMINATION: XR chest 1V portable 10/03/2019 22:29 INDICATION: Status post fall. Weakness. Hypertension. PROCEDURE: AP portable chest COMPARISON: 08/30/2019 FINDINGS: The lungs are clear. The cardiomediastinal silhouette is within normal limits. There are no pleural effusions. There is no pneumothorax suspected. IMPRESSION: 1: NO ACUTE CARDIOPULMONARY DISEASE. Reviewed, dictated and finalized at location A.
--- NOTE | ~2019-10-03 | CT_ITS ---
EXAMINATION: CT cervical spine wo con DATE: 10/03/2019 22:28 INDICATION: Neck pain after fall TECHNIQUE: Computed tomography (CT) of the cervical spine was performed without intravenous contrast. The dose-length product was 513 mGy-cm. Automated exposure control and iterative reconstruction tech [employer] were employed. COMPARISON: None FINDINGS: Straightening of cervical lordosis. Vertebral body and disc heights are preserved. There is an old C7 spinous process fracture. No spinal stenosis. Lung apices are normal. Odontoid process is normal. No significant paraspinal soft tissue abnormality. Thyroid gland is unremarkable. IMPRESSION: 1. No acute abnormality of the cervical spine. Reviewed, dictated and finalized at location A.
--- NOTE | 2019-10-03 21:07 | ECG_ITS ---
Measurements Intervals [place] Rate: 107 P: 38 ID: 137 QRS: 1 QRSD: 90 T: 52 QT: 317 QTc: 423 Interpretive Statements SINUS TACHYCARDIA POOR R WAVE PROGRESSION, ANTERIOR LEADS MINIMAL Q WAVES- INFERIOR LEADS ST ELEVATION IN ANTEROLATERAL LEADS- PROBABLY EARLY REPOLARIZATION BASELINE ARTIFACT- I, III, AVR, AVL, AVF ABNORMAL ECG Electronically Signed On 10-04-2019 7:26:10 CDT by De Roca D.O.
[2019-10-03 21:22] LABS: Basophils Absolute Auto 0.1 K/mm3 (0.0-0.1); Basophils Percent Auto 0.4 % (0.2-1.2); Eosinophils Absolute Auto 0.2 K/mm3 (0-0.3); Eosinophils Percent Auto 1.5 % (0-4.4); Hematocrit 35.1 % (42.0-52.0); Immature Granulocyte Absolute 0.12 K/mm3 (0.00-0.031); Immature Granulocyte Percent A 0.8 % (0-0.5); Lymphocytes Absolute Auto 3.48 K/mm3 (0.9-3.2); Lymphocytes Percent Auto 23.7 % (18.3-44.2); Mean Corpuscular HGB Conc 34.2 g/dl (32-36); Mean Corpuscular Hemoglobin 30.5 pg (26-34); Mean Corpuscular Volume 89.3 fl (80-100); Mean Platelet Volume 9.9 fl (7.4-10.4); Monocytes Absolute Auto 0.8 K/mm3 (0.1-0.6); Monocytes Percent Auto 5.5 % (2.6-8.5); Neutrophils Percent Auto 68.1 % (45.5-73.1); Platelet Count Result 229 k/mm3 (150-375); Red Blood Count 3.93 M/mm3 (4.6-6.20); Red Cell Distribution Width 14.1 % (11.5-14.5); White Blood Count 14.7 K/mm3 (4.5-10.0)
[2019-10-03 21:31] LABS: Prothrombin Time 12.9 Seconds (11.1-14.7)
[2019-10-03 21:32] LABS: Partial Thromboplastin Time 23.1 SECONDS (22.3-36.8)
[2019-10-03 21:34] LABS: Lactic Acid Reflex 2.1 mmol/L (0.7-2.1)
[2019-10-03 21:36] LABS: Alanine Aminotransferase 29 U/L (4-50); Albumin Level 4.1 g/dL (3.5-5.1); Alkaline Phosphatase 143 U/L (38-126); Anion Gap 15 mmol/L (8-16); Aspartate Amino Transferase 36 U/L (17-59); Bilirubin,Total 0.3 mg/dL (0.2-1.3); Blood Urea Nitrogen 88 mg/dL (9-20); CRP 1.5 mg/dL (<1.0); Calcium 8.5 mg/dL (8.4-10.2); Carbon Dioxide 21 mmol/L (22-30); Chloride 94 mmol/L (98-107); Estimated CRCL calculation 20 ml/min; Estimated Glomerular Filt Rate 16; Glucose 409 mg/dL (75-110); Potassium 4.6 mmol/L (3.4-5.0); Sodium 130 mmol/L (137-145)
[2019-10-03] MEDS: SODIUM CHLORIDE 0.9% IV 1,000 ML 999 ML IV CONT ×2 (21:53→23:40)
--- NOTE | 2019-10-03 21:53 | PC.NURSE ---
called lab to add on
[2019-10-03 22:03] LABS: Alveolar/Arterial O2 Gradient 20.1 mmHg; Base Excess ABG -7.5 mEq/l (+/-2.0); Carboxyhemoglobin 0.8 % THb (0-2.0); Fractional Inspired Oxygen 21 %; HCO3 ABG 18.6 mEq/l (22.0-26.0); Methemoglobin ABG 0.3 %THb (0-1.5); Oxygen Saturation ABG 94.8 % (95.0-100.0); PCO2 ABG 40.2 mmHg (35.0-45.0); PO2 ABG 81.5 mmHg (80.0-100.0); PO2 FiO2 Ratio Arterial Blood 3.88 %; Reduced Hemoglobin 5.9 %THb (0-5.0); Total Hemoglobin 11.4 g/dL (12.0-18.0)
[2019-10-03 22:05] LABS: Device ROOM AIR; Modified Allen's Test Pass; Site Drawn LEFT RADIAL; pH ABG 7.284 (7.350-7.450)
[2019-10-03 22:17] LABS: Creatine Kinase 1518 U/L (55-170); Magnesium 2.3 mg/dL (1.6-2.3); Phosphorus 6.4 mg/dL (2.5-4.5)
[2019-10-03 22:22] LABS: Beta-Hydroxybutyrate/Acetoacetate 0.08 mmol/L (0.02-0.27)
[2019-10-03] MEDS: SODIUM CHLORIDE 0.9% IV 1,000 ML 999 ML (22:35)
[2019-10-03 23:20] LABS: Add Urine Microscopic? YES; Appearance Urine Clear (Clear); Bacteria Urine 2+ /hpf; Bilirubin Urine Negative (Negative); Blood Urine Negative (Negative); Color Urine Yellow (Yellow); Glucose Urine UA 3+ mg/dL (Negative); Hyaline Casts Urine 30-49 /lpf; Ketones Urine Negative (Negative); Leukocyte Esterase Ur Negative LEU/UL (Negative); Mucus Urine Rare /lpf; Nitrate Urine Negative (Negative); Protein Urine Negative (Negative); RBC Urine 0-2 /hpf (0-2); Specific Grav Ur 1.017 (1.001-1.035); Urobilinogen Urine Negative mg/dL (<2.0); WBC Urine 0-3 /hpf
--- NOTE | 2019-10-03 23:20 | ED.GENADULT ---
HPI - General Adult General Chief complaint: Weakness Stated complaint: neck pain. Time Seen by Provider: 10/03/19 22:01 History of Present Illness HPI narrative: Patient is a 49-year-old male who presents ER with multiple complaints. Patient has been feeling increasingly weak and has been having dizziness with change in position over the last few days. Weakness started over the last week. Also over the last days developed some headache. 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 Reports normal oral intake of food and water. No chest pain/chest pressure/runny nose/sore throat/cough. No known COVID exposures. No dysuria/abdominal pain/nausea/vomiting. No history of kidney failure but does have history of high blood pressure and diabetes. Related Data Home Medications Medication Instructions Recorded Confirmed Flovent HFA 2 puff INHALATION BID 08/30/19 08/30/19 Jardiance 10 mg PO DAILY 08/30/19 08/30/19 Novolin N NPH U-100 Insulin 15 unit SUBCUT BID 08/30/19 08/31/19 albuterol sulfate [Ventolin HFA] 90 mcg INHALATION Q4HWA 08/30/19 08/30/19 aspirin 81 mg PO DAILY 08/30/19 08/30/19 atorvastatin 20 mg PO DAILY 08/30/19 08/30/19 gabapentin 600 mg PO TID 08/30/19 08/30/19 lisinopril 2.5 mg PO DAILY 08/30/19 08/30/19 tamsulosin 0.4 mg PO DAILY 08/30/19 08/30/19 Allergies Allergy/AdvReac Type Severity Reaction Status Date / Time No Known Allergies Allergy Verified 10/03/19 21:06 Review of Systems Review of Systems: All systems reviewed & are unremarkable except as noted in HPI and below Constitutional: Constitutional: Denies chills, Denies fever(s) and Denies weakness Eyes: Eyes: Denies change in vision ENT: Denies nasal congestion and Denies sore throat Cardiovascular: Cardiovascular: Denies chest pain, Denies rapid heart rate and Denies radiating jaw, neck or arm pain Respiratory: Respiratory: Denies cough, Denies dyspnea and Denies wheezing Gastrointestinal: Gastrointestinal: Denies abdominal pain, Denies nausea and Denies vomiting Neurologic: Reports dizziness, Denies syncope, Denies focal weakness, Denies numbness and Reports weakness PMFSH Social History Social History Social History: The patient lives in [place] with his . 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 he will occasionally smoke a cigarette or two here and there. He denies alcohol and illicit substance use. He designates his as his surrogate decision maker and he wishes to be a full code. Spiritual care concerns: No Exam Narrative: Exam Narrative: GENERAL: Well-appearing, well-nourished, and in no acute distress. HEAD: Normocephalic, atraumatic. ENT: Mucous membranes moist. CHEST: Clear to auscultation. No respiratory distress. HEART: Regular rate and rhythm. Normal peripheral pulses. ABDOMEN: Soft, nontender, nondistended EXTREMITIES: Normal range of motion. No edema. SKIN: Warm, dry, no rash. NEURO: Alert and oriented x3. PSYCH: Normal mood and affect. Course Course Emergency Course: Informed of results. Admit for hydration. Accepted by hospitalist. Vital Signs Vital signs: Vital Signs Temperature 97.7 F 10/03/19 20:57 Pulse Rate 113 H 10/03/19 20:57 Respiratory Rate 20 10/03/19 20:57 Blood Pressure 96/52 L 10/03/19 20:57 Pulse Oximetry 98 10/03/19 20:57 Temperature 97.8 F 10/04/19 01:05 Pulse Rate 82 10/04/19 01:05 Respiratory Rate 20 10/04/19 01:05 Blood Pressure 120/68 10/04/19 01:05 Pulse Oximetry 99 10/04/19 01:05 Medical Decision Making Vital Signs Vital Signs: Vital Signs Temperature 97.7 F 10/03/19 20:57 Pulse Rate 113 H 10/03/19 20:57 Respiratory Rate 20 10/03/19 20:57 Blood Pressure 96/52 L 10/03/19 20:57 Pulse Oximetry 98 10/03/19 20:57 Temperature 97.8 F 10/04/19 01:05 Pulse Rate 82 10/04/19 01:05 Respiratory Rate 20 10/04/19 01:05 Blood Pressure 120/68
[2019-10-04] VITALS (9 sets, daily range): BP systolic 119–141; BP diastolic 68–83; PULSE 82–110; RESP 12–20; TEMP 36.1–36.9; O2SAT 96–100; BMI 35.8
[2019-10-04 00:22] LABS: Reflex Lactic Acid Yes or No Add Lactic
[2019-10-04 00:48] LABS: Lactic Acid 1.2 mmol/L (0.7-2.1)
[2019-10-04 06:49] LABS: Hematocrit 31.6 % (42.0-52.0); Hemoglobin 10.7 g/dL (14.0-18.0); Mean Corpuscular HGB Conc 33.9 g/dl (32-36); Mean Corpuscular Hemoglobin 30.5 pg (26-34); Mean Platelet Volume 9.7 fl (7.4-10.4); Platelet Count Result 205 k/mm3 (150-375); Red Blood Count 3.51 M/mm3 (4.6-6.20); White Blood Count 10.1 K/mm3 (4.5-10.0)
[2019-10-04 07:22] LABS: Anion Gap 7 mmol/L (8-16); Blood Urea Nitrogen 70 mg/dL (9-20); Calcium 8.1 mg/dL (8.4-10.2); Carbon Dioxide 23 mmol/L (22-30); Chloride 106 mmol/L (98-107); Creatine Kinase 1284 U/L (55-170); Estimated CRCL calculation 44 ml/min; Estimated Glomerular Filt Rate 35; Glucose 227 mg/dL (75-110); Magnesium 2.2 mg/dL (1.6-2.3); Phosphorus 4.3 mg/dL (2.5-4.5); Sodium 136 mmol/L (137-145)
[2019-10-04 09:44] LABS: Glucose Point of Care 230 (65-105)
[2019-10-04] MEDS: INSULIN ASPART (*BKC) 100 UNITS/ML SUB-Q ×3 (09:49→17:19)
[2019-10-04] MEDS: SODIUM CHLORIDE 0.9% IV 1,000 ML 150 ML IV CONT ×2 (09:51→16:43)
[2019-10-04 12:35] LABS: Glucose Point of Care 291 (65-105)
--- NOTE | 2019-10-04 16:59 | PM.IMHP ---
H&P: HPI History of Present Illness Date/Time: 10/04/19 1200 Chief complaint: rhabdomyolysis, aron Narrative: The supervising physician for this history and physical is Dr Alberto Wright. Howard Patel is a 49 year old male with history of insulin-dependent type 2 diabetes mellitus, hypertension, hyperlipidemia, benign prostatic hyperplasia presented to the ED for evaluation of generalized weakness. Mr. Romo is Dominican-speaking and a [employer] video ict customer support officer was used for this encounter. The patient tells me he has been feeling more weak over the last 1 week and he fell 2 days ago. He tells me he did not hit his head or lose consciousness when he fell. He denies dizziness or lightheadedness, felt like his legs gave out from under him. It is noted that the patient was hospitalized here 1 month ago for dehydration and acute renal failure that was felt to be related to working outside in the heat. 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 During his previous admission, he was having significant headaches which he tells me have now improved. Over the last 2 days he noted he was having abdominal cramping, which is now resolved today. He denies any nausea, vomiting, diarrhea, constipation. Last bowel movement was this morning. He denies any chest pain or shortness of breath. Creatine kinase 1518 on arrival, Cr 3.9. CT brain, CT C-spine, and chest x-ray are unremarkable. Patient is admitted to the hospitalist service for management of acute renal failure and rhabdomyolysis, suspect again related to heat exhaustion. Review of Systems Review of Systems: Narrative: He is feeling better today. He denies any headache, dizziness. Denies any chest pain, shortness of breath, cough, fevers, chills, or sick contacts. He was having some abdominal cramping over the last 2 days, which is resolved today. No nausea, vomiting, diarrhea, hematochezia, melena. Twelve systems were reviewed with pertinent positives and negatives as per HPI. [facility] Surgical History Surgical History No history of previous surgery Family History Family History Other Diabetes mellitus Hypertension Social History Social History (Updated 10/04/19 @ 17:09 by Darby Ngo PA-C) Social History: The patient lives in [place] with his . 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 He tells me he smokes around 3-4 cigarettes per day. He denies alcohol and illicit substance use. He designates his as his surrogate decision maker and he wishes to be full code status. Years smoked: 40 Smoking status: Current every day smoker Tobacco type: cigarettes Second hand tobacco smoke exposure: No Alcohol intake: never Substance use: never Gender identity (if verbalized by the patient): Male Spiritual care concerns: No Meds Home Medications and Allergies Home Medications Medication Instructions Recorded Confirmed Type Jardiance 10 mg PO DAILY 08/30/19 10/04/19 History Novolin N NPH U-100 Insulin 15 unit SUBCUT BID 08/30/19 10/04/19 History aspirin 81 mg PO DAILY 08/30/19 10/04/19 History atorvastatin 20 mg PO HS 08/30/19 10/04/19 History gabapentin 600 mg PO TID 08/30/19 10/04/19 History lisinopril 2.5 mg PO DAILY 08/30/19 10/04/19 History tamsulosin 0.4 mg PO DAILY 08/30/19 10/04/19 History cyclobenzaprine 10 mg PO TID PRN #20 tablet 09/08/19 10/04/19 Rx metformin 1,000 mg PO DAILY 10/04/19 10/04/19 History methylprednisolone 4 mg PO UD DOSE PK 10/04/19 10/04/19 History Allergies Allergy/AdvReac Type Severity Reaction Status Date / Time No Known Allergies Allergy Verified 10/03/19 21:06 Vital Signs Last Vital Signs Temp 97.0 F L 10/04/19 16:00 Pulse 85 10/04/19 16:00 Resp 18 10/04/19 16:00 BP 141/79 H 10/04/19 16:00 Pulse Ox 99 10/04/19 16:00 Exam Narrative: Exam Na
[2019-10-04] MEDS: GABAPENTIN 300 MG CAPSULE 600 MG PO (17:23)
[2019-10-04] MEDS: INSULIN HUMAN NPH (*BKC) 100 UNITS/ML 10 UNITS SUB-Q (17:32)
[2019-10-04 17:52] LABS: Glucose Point of Care 224 (65-105)
[2019-10-04 21:36] LABS: Glucose Point of Care 194 (65-105)
[2019-10-05 02:00] VITALS: BP 144/83; PULSE 86; RESP 20; TEMP 36.9; O2SAT 98
[2019-10-05] MEDS: SODIUM CHLORIDE 0.9% IV 1,000 ML 150 ML IV CONT ×2 (04:57→11:04)
[2019-10-05 06:00] VITALS: BP 129/75; PULSE 84; RESP 20; TEMP 36.8; O2SAT 99
[2019-10-05 06:39] LABS: Glucose Point of Care 165 (65-105)
[2019-10-05 07:02] LABS: Hemoglobin 10.8 g/dL (14.0-18.0)
[2019-10-05 07:23] LABS: Alanine Aminotransferase 27 U/L (4-50); Albumin Level 3.6 g/dL (3.5-5.1); Alkaline Phosphatase 89 U/L (38-126); Anion Gap 5 mmol/L (8-16); Aspartate Amino Transferase 33 U/L (17-59); Bilirubin,Total 0.3 mg/dL (0.2-1.3); Blood Urea Nitrogen 37 mg/dL (9-20); Calcium 8.7 mg/dL (8.4-10.2); Carbon Dioxide 24 mmol/L (22-30); Chloride 108 mmol/L (98-107); Creatine Kinase 779 U/L (55-170); Estimated CRCL calculation 86 ml/min; Estimated Glomerular Filt Rate > 60; Glucose 178 mg/dL (75-110); Potassium 4.7 mmol/L (3.4-5.0); Sodium 137 mmol/L (137-145)
[2019-10-05] MEDS: GABAPENTIN 300 MG CAPSULE 600 MG PO ×3 (08:24→17:28)
[2019-10-05] MEDS: ASPIRIN 81 MG ENTERIC TABLET PO (08:24)
[2019-10-05] MEDS: INSULIN HUMAN NPH (*BKC) 100 UNITS/ML 10 UNITS SUB-Q ×2 (08:25→17:31)
[2019-10-05] MEDS: lisinopriL 2.5 MG TABLET PO (08:29)
[2019-10-05 09:38] LABS: Glucose Point of Care 162 (65-105)
[2019-10-05 10:00] VITALS: BP 153/83; PULSE 97; RESP 16; TEMP 36.7; O2SAT 100
[2019-10-05 12:40] LABS: Glucose Point of Care 141 (65-105)
--- NOTE | 2019-10-05 12:55 | P.PNIM_ITS ---
Progress Note: A&P Assessment and Plan (1) Acute renal failure: Qualifiers: Acute renal failure type: unspecified Qualified Code(s): N17.9 - Acute kidney failure, unspecified Code(s): N17.9 - Acute kidney failure, unspecified Status: Acute Assessment and Plan: * Patient has acute renal failure may be secondary to rhabdomyolysis, dehydration and heat exhaustion. He was also taking a lot of ibuprofen for headaches recently which may have contributed. * I have educated him using the paraffin plant operator, to avoid ibuprofen and use Tylenol for headaches instead. * Cr 3.9 on arrival, improved to 1.0 today. * Admitted one month ago for same, Cr was 5.0 on arrival at that time and 1.1 on day of discharge after rehydration with IV fluids. * Will continue IV fluids, avoid nephrotoxic agents (hold his metformin); monitor renal function daily. (2) Rhabdomyolysis: Qualifiers: Rhabdomyolysis type: non-traumatic Qualified Code(s): M62.82 - Rhabdomyolysis Code(s): M62.82 - Rhabdomyolysis Status: Acute Assessment and Plan: * [place] to be secondary to heat exhaustion. 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 * CK improving. Continue IV hydration and recheck CK in AM. Anticipate possible discharge tomorrow. (3) Insulin dependent type 2 diabetes mellitus: Code(s): E11.9 - Type 2 diabetes mellitus without complications; Z79.4 - group home (current) use of insulin Status: Acute Assessment and Plan: * Hgb A1c was 10.1 last month. He takes NPH insulin, Jardiance, metformin. * Will continue an insulin regimen here. Hold metformin, Jardiance nonformulary. * Monitor with Accu-Cheks and adjust treatment as needed, cover with SSI. (4) Iron deficiency anemia: Qualifiers: Iron deficiency anemia type: unspecified iron deficiency Qualified Code(s): D50.9 - Iron deficiency anemia, unspecified Code(s): D50.9 - Iron deficiency anemia, unspecified Status: Chronic Assessment and Plan: * Chronic normocytic anemia. Iron studies from last admission are consistent with iron deficiency anemia. * H&H are low but stable, no evidence of acute bleeding. Monitor CBC. * Continue oral iron supplementation. (5) Hyperlipidemia: Qualifiers: Hyperlipidemia type: unspecified Qualified Code(s): E78.5 - Hyperlipidemia, unspecified Code(s): E78.5 - Hyperlipidemia, unspecified Status: Acute Assessment and Plan: * We will hold his home statin therapy in light of his acute rhabdomyolysis. Subjective Date/time seen: 10/05/19 12:45 Interval history: Mr. Romo is a pleasant 49yo M admitted for acute renal failure and rhabdomyolysis. He is Korean-speaking and a [employer] interpreter is used for my encounter. He reports feeling well today, slept okay. Not having a headache, abdominal pain, nausea or vomiting. He denies chest pain or shortness of breath. He is hungry but otherwise offers no complaints. Review of Systems Review of Systems: Narrative: Twelve systems were reviewed with pertinent positives and negatives as per HPI. Exam Narrative: Exam Narrative: General: Well-developed, well-nourished male resting sitting up on the edge of the bed in no acute distress. HEENT: Normocephalic, atraumatic, EOMI, oropharynx clear. Chest: Lungs clear to auscultat
--- NOTE | 2019-10-05 12:55 | PM.IMPN ---
Progress Note: A&P Assessment and Plan (1) Acute renal failure: Qualifiers: Acute renal failure type: unspecified Qualified Code(s): N17.9 - Acute kidney failure, unspecified Code(s): N17.9 - Acute kidney failure, unspecified Status: Acute Assessment and Plan: Patient has acute renal failure may be secondary to rhabdomyolysis, dehydration and heat exhaustion. He was also taking a lot of ibuprofen for headaches recently which may have contributed. I have educated him using the medical office supervisor, to avoid ibuprofen and use Tylenol for headaches instead. Cr 3.9 on arrival, improved to 1.0 today. Admitted one month ago for same, Cr was 5.0 on arrival at that time and 1.1 on day of discharge after rehydration with IV fluids. Will continue IV fluids, avoid nephrotoxic agents (hold his metformin); monitor renal function daily. (2) Rhabdomyolysis: Qualifiers: Rhabdomyolysis type: non-traumatic Qualified Code(s): M62.82 - Rhabdomyolysis Code(s): M62.82 - Rhabdomyolysis Status: Acute Assessment and Plan: [place] to be secondary to heat exhaustion. 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 CK improving. Continue IV hydration and recheck CK in AM. Anticipate possible discharge tomorrow. (3) Insulin dependent type 2 diabetes mellitus: Code(s): E11.9 - Type 2 diabetes mellitus without complications; Z79.4 - FDC (current) use of insulin Status: Acute Assessment and Plan: Hgb A1c was 10.1 last month. He takes NPH insulin, Jardiance, metformin. Will continue an insulin regimen here. Hold metformin, Jardiance nonformulary. Monitor with Accu-Cheks and adjust treatment as needed, cover with SSI. (4) Iron deficiency anemia: Qualifiers: Iron deficiency anemia type: unspecified iron deficiency Qualified Code(s): D50.9 - Iron deficiency anemia, unspecified Code(s): D50.9 - Iron deficiency anemia, unspecified Status: Chronic Assessment and Plan: Chronic normocytic anemia. Iron studies from last admission are consistent with iron deficiency anemia. H&H are low but stable, no evidence of acute bleeding. Monitor CBC. Continue oral iron supplementation. (5) Hyperlipidemia: Qualifiers: Hyperlipidemia type: unspecified Qualified Code(s): E78.5 - Hyperlipidemia, unspecified Code(s): E78.5 - Hyperlipidemia, unspecified Status: Acute Assessment and Plan: We will hold his home statin therapy in light of his acute rhabdomyolysis. Subjective Date/time seen: 10/05/19 12:45 Interval history: Mr. Romo is a pleasant 49yo M admitted for acute renal failure and rhabdomyolysis. He is Argentine-speaking and a [employer] [facility] maternal child nurse is used for my encounter. He reports feeling well today, slept okay. Not having a headache, abdominal pain, nausea or vomiting. He denies chest pain or shortness of breath. He is hungry but otherwise offers no complaints. Review of Systems Review of Systems: Narrative: Twelve systems were reviewed with pertinent positives and negatives as per HPI. Exam Narrative: Exam Narrative: General: Well-developed, well-nourished male resting sitting up on the edge of the bed in no acute distress. HEENT: Normocephalic, atraumatic, EOMI, oropharynx clear. Chest: Lungs clear to auscultation all drake. Respirations are even and nonlabored. Tolerating room air. Heart: Rate and rhythm regular. Abdomen: Soft, nontender, nondistended, bowel sounds present. Extremities: Peripheral pulses intact. No edema, erythema, cyanosis or clubbing. Neurologic: No focal neurological deficits are noted. Speech is clear. Objective Data Vital Signs Vital Signs: Last Vital Signs Temp 9
[2019-10-05 14:00] VITALS: BP 137/77; PULSE 83; RESP 18; TEMP 36.2; O2SAT 99
[2019-10-05] MEDS: INSULIN ASPART (*BKC) 100 UNITS/ML SUB-Q (17:32)
[2019-10-05 17:40] LABS: Glucose Point of Care 235 (65-105)
[2019-10-05 18:00] VITALS: BP 140/80; PULSE 82; RESP 18; TEMP 36.7; O2SAT 100
[2019-10-05] MEDS: SODIUM CHLORIDE 0.9% IV 1,000 ML 100 ML IV CONT (19:18)
[2019-10-05 22:00] VITALS: BP 135/81; PULSE 66; RESP 18; TEMP 36.5; O2SAT 99
[2019-10-05 23:00] LABS: Glucose Point of Care 149 (65-105)
[2019-10-06] MEDS: SODIUM CHLORIDE 0.9% IV 1,000 ML 100 ML IV CONT (04:01)
[2019-10-06 06:00] VITALS: BP 133/87; PULSE 71; RESP 18; TEMP 36.6; O2SAT 99
[2019-10-06] MEDS: INSULIN HUMAN NPH (*BKC) 100 UNITS/ML 10 UNITS SUB-Q (06:40)
[2019-10-06 06:50] LABS: Glucose Point of Care 124 (65-105)
[2019-10-06 06:52] LABS: Basophils Percent Auto 0.4 % (0.2-1.2); Eosinophils Absolute Auto 0.2 K/mm3 (0-0.3); Eosinophils Percent Auto 2.4 % (0-4.4); Hemoglobin 10.9 g/dL (14.0-18.0); Immature Granulocyte Absolute 0.02 K/mm3 (0.00-0.031); Immature Granulocyte Percent A 0.3 % (0-0.5); Lymphocytes Absolute Auto 2.31 K/mm3 (0.9-3.2); Lymphocytes Percent Auto 30.4 % (18.3-44.2); Mean Corpuscular HGB Conc 34.1 g/dl (32-36); Mean Corpuscular Hemoglobin 30.4 pg (26-34); Mean Corpuscular Volume 89.1 fl (80-100); Mean Platelet Volume 9.8 fl (7.4-10.4); Monocytes Absolute Auto 0.5 K/mm3 (0.1-0.6); Monocytes Percent Auto 6.3 % (2.6-8.5); Neutrophils Absolute Auto 4.6 K/mm3 (1.3-6.7); Neutrophils Percent Auto 60.2 % (45.5-73.1); Platelet Count Result 182 k/mm3 (150-375); Red Blood Count 3.59 M/mm3 (4.6-6.20); Red Cell Distribution Width 13.4 % (11.5-14.5); White Blood Count 7.6 K/mm3 (4.5-10.0)
[2019-10-06 07:09] LABS: Anion Gap 6 mmol/L (8-16); Blood Urea Nitrogen 23 mg/dL (9-20); Calcium 8.5 mg/dL (8.4-10.2); Carbon Dioxide 25 mmol/L (22-30); Chloride 106 mmol/L (98-107); Creatine Kinase 338 U/L (55-170); Estimated CRCL calculation 95 ml/min; Estimated Glomerular Filt Rate > 60; Glucose 130 mg/dL (75-110); Potassium 4.4 mmol/L (3.4-5.0); Sodium 137 mmol/L (137-145)
[2019-10-06 08:18] LABS: Glucose Point of Care 144 (65-105)
[2019-10-06] MEDS: ASPIRIN 81 MG ENTERIC TABLET PO (08:18)
[2019-10-06] MEDS: lisinopriL 2.5 MG TABLET PO (08:19)
[2019-10-06] MEDS: GABAPENTIN 300 MG CAPSULE 600 MG PO ×2 (08:19→12:22)
[2019-10-06 12:22] LABS: Glucose Point of Care 167 (65-105)
--- NOTE | 2019-10-06 13:02 | PM.DS ---
DS: Admitting Diagnosis Admitting Diagnosis Admitting Diagnosis: rhabdomyolysis, aron DS: Discharge Diagnosis Discharge Diagnosis (1) Acute renal failure: Qualifiers: Acute renal failure type: unspecified Qualified Code(s): N17.9 - Acute kidney failure, unspecified Code(s): N17.9 - Acute kidney failure, unspecified Status: Acute Assessment and Plan: Date of Service 10/06/19 Mr. Romo is a pleasant 49yo M with history of insulin-dependent type 2 diabetes mellitus, HLD, and iron deficiency anemia who presented to the ED for evaluation of generalized weakness and a fall at home. CK was noted to be elevated. Creatinine and BUN also elevated. He was treated with IV fluids for acute renal failure and acute rhabdomyolysis. He was admitted to [facility] around 1 month ago for same. 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 He also has had significant headaches recently and reports taking a lot of ibuprofen. Mr. Romo speaks Portuguese and a video [employer] glazier helper was utilized for each of my encounters. I educated him on avoiding ibuprofen and other NSAIDs to treat his headache, and to use Tylenol instead. We also discussed the importance of him drinking plenty of fluids to stay hydrated and to take breaks as needed while working out in the heat. He was feeling improved and was hemodynamically stable for discharge 10/06/19 with instructions to follow up with his PCP at [facility]. Patient has acute renal failure may be secondary to rhabdomyolysis, dehydration and heat exhaustion. He was also taking a lot of ibuprofen for headaches recently which may have contributed. I have educated him using the sailing officer, to avoid ibuprofen and use Tylenol for headaches instead. Cr 3.9 on arrival and improved 0.90 on day of discharge with IV fluids. (2) Rhabdomyolysis: Qualifiers: Rhabdomyolysis type: non-traumatic Qualified Code(s): M62.82 - Rhabdomyolysis Code(s): M62.82 - Rhabdomyolysis Status: Acute Assessment and Plan: [place] to be secondary to heat exhaustion. 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 CK 1518 on arrival and improved to 338 with IV fluids. (3) Insulin dependent type 2 diabetes mellitus: Code(s): E11.9 - Type 2 diabetes mellitus without complications; Z79.4 - continuous churn buttermaker (current) use of insulin Status: Acute Assessment and Plan: Hgb A1c was 10.1 last month. Educated on the importance of checking blood sugars regularly and following up with PCP. Continue his NPH insulin, metformin, and Jardiance. (4) Iron deficiency anemia: Qualifiers: Iron deficiency anemia type: unspecified iron deficiency Qualified Code(s): D50.9 - Iron deficiency anemia, unspecified Code(s): D50.9 - Iron deficiency anemia, unspecified Status: Chronic Assessment and Plan: Chronic normocytic anemia. Iron studies from last admission are consistent with iron deficiency anemia. H&H are low but stable, no evidence of acute bleeding. Monitor CBC. Continue oral iron supplementation. (5) Hyperlipidemia: Qualifiers: Hyperlipidemia type: unspecified Qualified Code(s): E78.5 - Hyperlipidemia, unspecified Code(s): E78.5 - Hyperlipidemia, unspecified Status: Acute Assessment and Plan: Statin therapy held inpatient in light of his acute rhabdomyolysis, able to resume at discharge. DS: Summary Time Spent with Patient Time attestation: Total time spent providing and/or coordinating discharge services: 40 minutes Exam Narrative: Exam Narrative: General: Well-developed, well-nourished male resting sitting up on the edge
[2019-10-06 14:00] VITALS: BP 133/78; PULSE 79; RESP 18; TEMP 36.6; O2SAT 98
[2019-10-06 14:41] VITALS: BP 133/78; PULSE 79; RESP 18; TEMP 36.6; O2SAT 98
== END 2019-10-06 15:20 | disposition home or self-care (01) ==
LOC: ANHED 22:01 → ANH3MEDSUR 10-04 00:32
PROVIDERS: Emergency Medicine Emergency Medical Services; Physician Assistant; Admitting Provider Internal Medicine; Emergency Provider Emergency Medicine; Visit Provider Family Medicine
DX: N17.9 Acute kidney failure, unspecified (principal); M62.82 Rhabdomyolysis; E11.9 Type 2 diabetes mellitus without complications; E78.5 Hyperlipidemia, unspecified; D50.9 Iron deficiency anemia, unspecified; I10 Essential (primary) hypertension; F17.210 Nicotine dependence, cigarettes, uncomplicated; N40.0 Benign prostatic hyperplasia without lower urinary tract symptoms; Z91.81 History of falling; Z79.4 Long term (current) use of insulin; Z79.82 Long term (current) use of aspirin; Z79.899 Other long term (current) drug therapy
CPT/HCPCS: 36415; 36600; 70450; 71045; 72125; 80048; 80053; 81001; 82010; 82375; 82550; 82805; 83050; 83605; 83735; 84100; 85014; 85018; 85025; 85027; 85610; 85730; 86140; 87040; 93005; 96360; 96361; 99285; A9270; G0378; G0379; J1815; J7030

== ENCOUNTER 2020-08-27 21:19 | Inpatient (IN) | payer SELFPAY ==
--- NOTE | ~2020-08-27 | XR_ITS ---
EXAMINATION: XR chest 2V EXAM DATE: 08/27/2020 22:08 INDICATION: cp, neck pain. TECHNIQUE: Frontal and lateral projections of the chest obtained and reviewed. Comparison is made to prior examination from 10/03/2019. FINDINGS: The lungs are clear. There are no pleural effusions. Cardiomediastinal silhouette is norm al. There is no pneumothorax suspected. The bones and soft tissues are unremarkable. There is no significant interval change. IMPRESSION: No acute cardiopulmonary findings. Reviewed, dictated and finalized at location G.
--- NOTE | ~2020-08-27 | CT_ITS ---
EXAMINATION: CT abdomen pelvis wo con EXAM DATE: 08/27/2020 23:53 INDICATION: Bodyaches, elevated creatinine. TECHNIQUE: Spiral CT of the abdomen and pelvis was performed without contrast. Axial, coronal and sag ittal images were reviewed. The dose-length product (DLP) for this examination was 1162.71 mGy-cm. The exposure was tailored according to patient size (auto mA exposure control), and iterative reconst ruction (ASIR) was used as additional dose reduction technique. Comparison is made to prior examinati on from 08/30/2019. FINDINGS: There is no nephrolithiasis or hydronephrosis. The prostate is unremarkable. The bladder is unremarkable. The liver, spleen, adrenal glands and pancreas are unremarkable. Gallbladder is u nremarkable. No biliary obstruction. There is no retroperitoneal or pelvic lymphadenopathy. There is mild scattered arteriosclerotic disease. There is small umbilical fat-containing hernia. The appendix is normal. The stomach and small bowel are unremarkable. There is moderate amount of c olonic stool. No free intraperitoneal gas. Borderline cardiomegaly.. The lung bases are unremark able. There are no osteoblastic or osteolytic lesions identified. IMPRESSION: 1. No nephrolithiasis, hydronephrosis or acute intra-abdominal findings. Reviewed, dictated and finalized at location .
--- NOTE | 2020-08-27 21:21 | ECG_ITS ---
Measurements Intervals [place] Rate: 80 P: 46 [place]: 140 QRS: -1 QRSD: 94 T: 49 QT: 348 QTc: 403 Interpretive Statements SINUS RHYTHM ST ELEVATION IN ANTERIOR LEADS- PROBABLY EARLY REPOLARIZATION ABNORMALITY BASELINE ARTIFACT- I, II, III, AVR, AVL, AVF, V1, V3-V6 BORDERLINE ECG Electronically Signed On 08-28-2020 6:28:17 CDT by De Roca D.O.
[2020-08-27 22:01] LABS: Basophils Percent Auto 0.4 % (0.2-1.2); Eosinophils Absolute Auto 0.2 K/mm3 (0-0.3); Eosinophils Percent Auto 2.7 % (0-4.4); Hematocrit 31.1 % (42.0-52.0); Hemoglobin 10.2 g/dL (14.0-18.0); Immature Granulocyte Absolute 0.03 K/mm3 (0.00-0.031); Immature Granulocyte Percent A 0.4 % (0-0.5); Lymphocytes Absolute Auto 2.78 K/mm3 (0.9-3.2); Lymphocytes Percent Auto 32.4 % (18.3-44.2); Mean Corpuscular HGB Conc 32.8 g/dl (32-36); Mean Corpuscular Hemoglobin 30.3 pg (26-34); Mean Corpuscular Volume 92.3 fl (80-100); Mean Platelet Volume 9.2 fl (7.4-10.4); Monocytes Absolute Auto 0.6 K/mm3 (0.1-0.6); Monocytes Percent Auto 7.1 % (2.6-8.5); Neutrophils Absolute Auto 4.9 K/mm3 (1.3-6.7); Platelet Count Result 192 k/mm3 (150-375); Red Blood Count 3.37 M/mm3 (4.6-6.20); Red Cell Distribution Width 14.3 % (11.5-14.5); White Blood Count 8.6 K/mm3 (4.5-10.0)
[2020-08-27 22:12] LABS: Prothrombin Time 12.6 Seconds (11.1-14.7)
[2020-08-27 22:13] LABS: Partial Thromboplastin Time 26.8 SECONDS (22.3-36.8)
[2020-08-27 22:15] VITALS: BP 105/61; PULSE 76; RESP 14; O2SAT 99
[2020-08-27 22:20] LABS: Anion Gap 13 mmol/L (8-16); Blood Urea Nitrogen 64 mg/dL (9-20); Calcium 8.8 mg/dL (8.4-10.2); Carbon Dioxide 22 mmol/L (22-30); Chloride 103 mmol/L (98-107); Estimated Glomerular Filt Rate 20; Glucose 169 mg/dL (65-110); Potassium 5.1 mmol/L (3.4-5.0); Sodium 138 mmol/L (137-145)
[2020-08-27 22:32] LABS: Troponin I < 0.012 ng/mL (0.000-0.034)
[2020-08-27] MEDS: SODIUM CHLORIDE 0.9% IV 1,000 ML 999 ML IV CONT ×2 (22:33→23:14)
[2020-08-27] MEDS: KETOROLAC 30 MG/ML VIAL (*BKC) IV PUSH (22:34)
[2020-08-27] MEDS: diphenhydrAMINE HCl INJ 50 MG/ML VIAL 25 MG IV PUSH (22:36)
[2020-08-27] MEDS: PROCHLORPERAZINE EDISYLATE 10 MG/2 ML VIAL IV PUSH (22:37)
[2020-08-27 23:14] LABS: Lactic Acid Reflex 1.5 mmol/L (0.7-2.1)
[2020-08-27 23:15] LABS: Alanine Aminotransferase 28 U/L (4-50); Albumin Level 4.2 g/dL (3.5-5.1); Alkaline Phosphatase 97 U/L (38-126); Aspartate Amino Transferase 27 U/L (17-59); Bilirubin,Total 0.3 mg/dL (0.2-1.3)
--- NOTE | 2020-08-27 23:26 | ED.GENADULT ---
HPI - General Adult General Chief complaint: Chest Pain Stated complaint: neck, side pain Time Seen by Provider: 08/27/20 21:30 History of Present Illness HPI narrative: Patient is a 50-year-old gentleman who presents the emergency department with chief complaint of generalized malaise. The patient reports that he has been having headaches neck pain body aches his chest is been bothering him and feels dry. Patient reports that this is different than what he has had before in the past has had an admission previously for acute kidney injury about a year ago. Patient reports his symptoms are not improved by anything or they worsened by anything Related Data Home Medications Medication Instructions Recorded Confirmed Jardiance 10 mg PO DAILY 08/30/19 10/04/19 Novolin N NPH U-100 Insulin 15 unit SUBCUT BID 08/30/19 10/04/19 aspirin 81 mg PO DAILY 08/30/19 10/04/19 atorvastatin 20 mg PO HS 08/30/19 10/04/19 gabapentin 600 mg PO TID 08/30/19 10/04/19 lisinopril 2.5 mg PO DAILY 08/30/19 10/04/19 tamsulosin 0.4 mg PO DAILY 08/30/19 10/04/19 metformin 1,000 mg PO DAILY 10/04/19 10/04/19 methylprednisolone 4 mg PO UD DOSE PK 10/04/19 10/04/19 Allergies Allergy/AdvReac Type Severity Reaction Status Date / Time No Known Allergies Allergy Verified 08/27/20 22:22 Review of Systems Review of Systems: Narrative: A 10 system review of systems was completed on the patient and is negative except for what is stated in the HPI. Nursing and ancillary documentation was reviewed. [facility] Past Medical History Medical History (Updated 08/28/20 @ 00:40 by Kenrick Hoffman MD) Benign prostatic hyperplasia Diabetic peripheral neuropathy Hyperlipidemia Hypertension Insulin dependent type 2 diabetes mellitus Tobacco abuse Surgical History Surgical History No history of previous surgery Family History Family History Other Diabetes mellitus Hypertension Social History Social History Social History: The patient lives in [place] with his . 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 He tells me he smokes around 3-4 cigarettes per day. He denies alcohol and illicit substance use. He designates his as his surrogate decision maker and he wishes to be full code status. Years smoked: 40 Smoking status: Current every day smoker Tobacco type: cigarettes Second hand tobacco smoke exposure: No Alcohol intake: never Substance use: never Gender identity (if verbalized by the patient): Male Spiritual care concerns: No Exam Narrative: Exam Narrative: GENERAL: Well-appearing, well-nourished, and in no acute distress. HEAD: Normocephalic, atraumatic. EYES: PERRLA and EOMI. ENT: Nares clear, no rhinorrhea or epistaxis. Mucous membranes moist. NECK: Supple. CHEST: Clear to auscultation. No respiratory distress. HEART: Regular rate and rhythm. No murmur heard. Normal peripheral pulses. ABDOMEN: Soft, nontender, nondistended, normal active bowel sounds. EXTREMITIES: Normal range of motion. No edema. SKIN: Warm, dry, no rash. NEURO: No focal deficits. Alert and oriented x3. PSYCH: Normal mood and affect. Course Vital Signs Vital signs: Vital Signs Pulse Rate 76 08/27/20 22:15 Respiratory Rate 14 08/27/20 22:15 Blood Pressure 105/61 08/27/20 22:15 Pulse Oximetry 99 08/27/20 22:15 Pulse Rate 76 08/28/20 00:23 Respiratory Rate 11 L 08/28/20 00:23 Blood Pressure 118/76 08/28/20 00:23 Pulse Oximetry 99 08/28/20 00:23 Medical Decision Making Vital Signs Vital Signs: Vital Signs Pulse Rate 76 08/27/20 22:15 Respiratory Rate 14 08/27/20 22:15 Blood Pressure 105/61 08/27/20 22:15 Pulse Oximetry 99 08/27/20 22:15 Pulse Rate 76 08/28/20 00:23 Respiratory
[2020-08-28] VITALS (13 sets, daily range): BP systolic 100–133; BP diastolic 60–76; PULSE 71–123; RESP 11–20; TEMP 36.3–36.9; O2SAT 97–99; BMI 26.2
[2020-08-28 00:34] LABS: Creatine Kinase 289 U/L (55-170)
[2020-08-28 00:50] LABS: Troponin I < 0.012 ng/mL (0.000-0.034)
[2020-08-28] MEDS: SODIUM CHLORIDE 0.9% IV 1,000 ML 125 ML IV CONT ×3 (01:01→16:43)
[2020-08-28 01:54] LABS: Add Urine Microscopic? YES; Appearance Urine Clear (Clear); Bilirubin Urine Negative (Negative); Blood Urine Negative (Negative); Color Urine Yellow (Yellow); Glucose Urine UA 3+ mg/dL (Negative); Ketones Urine Negative (Negative); Leukocyte Esterase Ur Negative LEU/UL (Negative); Nitrate Urine Negative (Negative); Protein Urine Negative (Negative); RBC Urine 0-2 /hpf (0-2); Specific Grav Ur 1.012 (1.001-1.035); Urobilinogen Urine Negative mg/dL (<2.0)
--- NOTE | 2020-08-28 02:00 | ADMGEN ---
This patient, Howard Patel, was admitted to IMU Room 209-01 at 0200. Patient/family oriented to hospital policies and general routines including ID bracelet, bed and alarms, visiting hours, pain management, procedures, bathroom and other care routines, personal items, smoking policy, room service/diet, and visiting hours. Information on how to activate the Rapid Response Team has been discussed. Patient/Family are encouraged to report perceived risks to care and to ask questions if they do not understand what they are told or what they should do.
[2020-08-28 04:01] LABS: Troponin I < 0.012 ng/mL (0.000-0.034)
--- NOTE | 2020-08-28 04:05 | PM.IMHP ---
H&P: HPI History of Present Illness Date/Time: 08/28/20 04:05 Chief Complaint: terrible body aches Narrative: 50-year-old male with a past medical history of hyperlipidemia, hypertension, type 2 diabetes mellitus and prior episodes of acute renal failure who presented to the ER with generalized body aches and malaise. Source of information is past medical records and patient report through certified court interpreter service. The patient has had 2 prior hospitalizations for acute renal failure associated with rhabdomyolysis and dehydration. 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 He has only been drinking about 2 L of fluid a day. He noticed about 3 days of generalized malaise. Is been accompanied by a severe generalized headache. He has tried some Tylenol for her symptoms without any relief in his symptoms. He he has not noticed any dark urine, decreased urine output, urinary retention or hematuria. He has not noticed any eliciting or relieving factors. He does report that he feels thirsty. He has not had any nausea or vomiting. He has not had a fevers or chills. He has not had any recent change in in his home medications. He has been having intermittent episodes of hyperglycemia. He does report some chest discomfort but his chest discomfort is associated with his back discomfort. He reports that when his chest and back hurt his legs are also hurting and his arms feel heavy and achy. when I entered the room in the ER the patient was snoring loudly. He reports that his states he snores frequently and does have episodes of apnea. He has never been tested for sleep apnea. he has chronic numbness and tingling in his feet due to peripheral neuropathy. He does not have any foot wound. Review of Systems Review of Systems: Narrative: 12 systems were reviewed with pertinent positives and negatives per HPI. Except as documented in the HPI, all other systems were reviewed and are negative. ON LICENSE OF [facility] Past Medical History Medical History (Updated 08/28/20 @ 04:46 by Rosa Melo DO) Benign prostatic hyperplasia Diabetic peripheral neuropathy Hyperlipidemia Hypertension Insulin dependent type 2 diabetes mellitus Iron deficiency anemia iron studies 08/2019 Tobacco abuse Surgical History Surgical History No history of previous surgery Family History Family History Mother Diabetes mellitus Father Diabetes mellitus Other Hypertension Social History Social History (Updated 08/28/20 @ 04:41 by Rosa Melo DO) Social History: The patient lives in [place] with his of 36 years. They have 2 children who are healthy. 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 He tells me he smokes around 3-4 cigarettes per day since he was 12 years old. He denies alcohol and illicit substance use. He designates his as his surrogate decision maker and he wishes to be full code status. Smoking packs per day: 0.25 Smoking cigarettes per day: 5.0 Years smoked: 40 Smoking pack-years: 10.00 Smoking status: Current every day smoker Second hand tobacco smoke exposure: No Alcohol intake: never Substance use: never Gender identity (if verbalized by the patient): Male Spiritual care concerns: No Meds Home Medications and Allergies Home Medications Medication Instructions Recorded Confirmed Type Jardiance 10 mg PO DAILY 08/30/19 08/28/20 History Novolin N NPH U-100 Insulin 15 unit SUBCUT BID 08/30/19 08/28/20 History aspirin 81 mg PO DAILY 08/30/19 08/28/20 History atorvastatin 20 mg PO HS 08/30/19 08/28/20 History gabapentin 600 mg PO TID 08/30/19 08/28/20 History lisinopril 2.5 mg PO DAILY 08/30/19 08/28/20 History tamsulosin 0.4 mg PO DAILY 08/30/19 08/28/20 History metformin 1,000 mg PO DAILY 10/04/19 08/28/20 History Allergies Allergy/AdvReac Type Sever
[2020-08-28 06:11] LABS: Anion Gap 9 mmol/L (8-16); Blood Urea Nitrogen 60 mg/dL (9-20); Calcium 7.9 mg/dL (8.4-10.2); Carbon Dioxide 20 mmol/L (22-30); Chloride 111 mmol/L (98-107); Estimated CRCL calculation 25 ml/min; Estimated Glomerular Filt Rate 25; Glucose 110 mg/dL (65-110); Potassium 5.2 mmol/L (3.4-5.0); Sodium 140 mmol/L (137-145)
[2020-08-28 06:52] LABS: Hemoglobin A1C 8.4 % (<5.7)
[2020-08-28] MEDS: ENOXAPARIN 30 MG/0.3 ML SYRINGE SUB-Q (08:57)
[2020-08-28] MEDS: GABAPENTIN 300 MG CAPSULE 600 MG PO ×3 (08:57→17:10)
[2020-08-28] MEDS: TAMSULOSIN HCL 0.4 MG CAPSULE PO (08:58)
[2020-08-28] MEDS: ASPIRIN 81 MG ENTERIC TABLET PO (09:00)
[2020-08-28] MEDS: INSULIN HUMAN NPH (*BKC) 100 UNITS/ML 15 UNITS SUB-Q ×2 (12:06→17:10)
--- NOTE | 2020-08-28 15:54 | P.PNIM_ITS ---
Progress Note: A&P Assessment and Plan (1) Acute kidney injury: Code(s): N17.9 - Acute kidney failure, unspecified Status: Acute Assessment and Plan: * CT A/P on admission showing No nephrolithiasis, hydronephrosis or acute intra- abdominal findings. * Most likely due to dehydration and concomitant use of Benji inhibitors and metformin. * Patient received 2 L of normal saline in the ER. * Creatinine improved to 2.7 today * Continue to hold the patient's home lisinopril and metformin. * Continue IV fluid hydration with normal saline (2) Hyperkalemia: Code(s): E87.5 - Hyperkalemia Status: Acute Assessment and Plan: * Potassium 5.1 on admission * No change on levels drawn today * No changes by telemetry * Repeat potassium later today (3) Chest pain: Qualifiers: Chest pain type: unspecified Qualified Code(s): R07.9 - Chest pain, unspecified Code(s): R07.9 - Chest pain, unspecified Status: Acute Assessment and Plan: * Patient presents with chest pain * Troponin negative x 3. EKG showing ST elevation felt to be repolerization. CXR clear * [place] CP is noncardiac chest pain. * Chest pain is more likely due to myalgias associated with his dehydration and acute kidney injury. Follow (4) Dehydration: Code(s): E86.0 - Dehydration Status: Acute Assessment and Plan: * As above. Continue normal saline (5) Type 2 diabetes mellitus: Code(s): E11.9 - Type 2 diabetes mellitus without complications Status: Acute Assessment and Plan: * A1c 8.4. Glucose reviewed on 08/28 and in good control * Will hold the patient's metformin and Jardiance. * Will continue NPH insulin and Accu-Cheks a.c. HS with low-dose sliding scale insulin and hypoglycemia protocol (6) DVT prophylaxis: Code(s): Z29.9 - Encounter for prophylactic measures, unspecified Status: Acute Assessment and Plan: [place] Subjective Date/time seen: 08/28/20 15:54 Interval history: 50yo male with DM and HTN here for body aches and found to be dehydrated with HERMINIO. He denies CP or SOB. He smokes 5-6 cigarettes per day. No n/v or diarrhea. Did have diarrhea 4 days ago but only lasted one day. Eating well. 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 Voiding normally. No dysuria or hematuria Exam Narrative: Exam Narrative: AF 98.4 100/60 76 20 99% ra Gen - NARD Chest - CTA bilaterally, nml RR CV - RRR S1/S2; Tele showing no significant dysrhythmias Abd - Soft, NT/ND, Positive BS Ext - mild indurated pedal edema Psych - Nml mood and affect Skin - Warm and dry Objective Data Vital Signs Vital Signs: Vital Signs - 24 hr 08/27/20 22:15 08/28/20 00:23 08/28/20 02:00 Temperature Pulse Rate 76 76 73 Respiratory Rate 14 11 L Blood Pressure 105/61 118/76 Pulse Oximetry 99 99 08/28/20 02:08 08/28/20 02:37 08/28/20 04:00 Temperature 97.9 F 98.0 F Pulse Rate 74 74 78 Respiratory Rate 20 20 20 Blood Pressure 128/67 129/64 Pulse Oximetry 98 98 99 08/28/20 06:00 08/28/20 08:00 08/28/20 10:00 Temperature 97.7 F Pulse Rate 76 98 84 Respiratory Rate 18 Blood Pressure 109/64 Pulse Oximetry 98
--- NOTE | 2020-08-28 15:54 | PM.IMPN ---
Progress Note: A&P Assessment and Plan (1) Acute kidney injury: Code(s): N17.9 - Acute kidney failure, unspecified Status: Acute Assessment and Plan: CT A/P on admission showing No nephrolithiasis, hydronephrosis or acute intra-abdominal findings. Most likely due to dehydration and concomitant use of Benji inhibitors and metformin. Patient received 2 L of normal saline in the ER. Creatinine improved to 2.7 today Continue to hold the patient's home lisinopril and metformin. Continue IV fluid hydration with normal saline (2) Hyperkalemia: Code(s): E87.5 - Hyperkalemia Status: Acute Assessment and Plan: Potassium 5.1 on admission No change on levels drawn today No changes by telemetry Repeat potassium later today (3) Chest pain: Qualifiers: Chest pain type: unspecified Qualified Code(s): R07.9 - Chest pain, unspecified Code(s): R07.9 - Chest pain, unspecified Status: Acute Assessment and Plan: Patient presents with chest pain Troponin negative x 3. EKG showing ST elevation felt to be repolerization. CXR clear [place] [facility] is noncardiac chest pain. Chest pain is more likely due to myalgias associated with his dehydration and acute kidney injury. Follow (4) Dehydration: Code(s): E86.0 - Dehydration Status: Acute Assessment and Plan: As above. Continue normal saline (5) Type 2 diabetes mellitus: Code(s): E11.9 - Type 2 diabetes mellitus without complications Status: Acute Assessment and Plan: A1c 8.4. Glucose reviewed on 08/28 and in good control Will hold the patient's metformin and Jardiance. Will continue NPH insulin and Accu-Cheks a.c. HS with low-dose sliding scale insulin and hypoglycemia protocol (6) DVT prophylaxis: Code(s): Z29.9 - Encounter for prophylactic measures, unspecified Status: Acute Assessment and Plan: Lovenox Subjective Date/time seen: 08/28/20 15:54 Interval history: 50yo male with DM and HTN here for body aches and found to be dehydrated with HERMINIO. He denies CP or SOB. He smokes 5-6 cigarettes per day. No n/v or diarrhea. Did have diarrhea 4 days ago but only lasted one day. Eating well. 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 Voiding normally. No dysuria or hematuria Exam Narrative: Exam Narrative: AF 98.4 100/60 76 20 99% ra Gen - NARD Chest - CTA bilaterally, nml RR CV - RRR S1/S2; Tele showing no significant dysrhythmias Abd - Soft, NT/ND, Positive BS Ext - mild indurated pedal edema Psych - Nml mood and affect Skin - Warm and dry Objective Data Vital Signs Vital Signs: Vital Signs - 24 hr 08/27/20 22:15 08/28/20 00:23 08/28/20 02:00 Temperature Pulse Rate 76 76 73 Respiratory Rate 14 11 L Blood Pressure 105/61 118/76 Pulse Oximetry 99 99 08/28/20 02:08 08/28/20 02:37 08/28/20 04:00 Temperature 97.9 F 98.0 F Pulse Rate 74 74 78 Respiratory Rate 20 20 20 Blood Pressure 128/67 129/64 Pulse Oximetry 98 98 99 08/28/20 06:00 08/28/20 08:00 08/28/20 10:00 Temperature 97.7 F Pulse Rate 76 98 84 Respiratory Rate 18 Blood Pressure 109/64 Pulse Oximetry 98 08/28/20 12:00 08/28/20 14:00 Temperature 98.4 F Pulse Rate 73 76 Respiratory Rate 20 Blood Pressure 100/60 Pulse Oximetry 99 Intake/Output Intake/Output: Intake & Output 08/25/20 08/26/20 08/27/20 08/28/20 23:59 23:59 23:59 23:59 Intake Total 1000 2340 Balance 1000 2340 Meds/Results Medications: Active Medications Generic Name Dose Route Start Last Admin Trade Name Clemencia PRN Reason Stop Dose Admin Aspirin 81 mg 08/28/20 09:00 08/28/20 09:00 Aspirin 81 Mg Enteric Tablet PO 81 mg DAILY PRICILLA Administration Atorvastatin Calcium 20 mg 08/28/20 21:00 Atorvastatin 20 Mg Tablet PO HS [facility] Dextrose 12.5 gm 08/28/20 04:33 Dextrose 50% 25 Gm/50 Ml Syringe IV PUSH
[2020-08-28 17:18] LABS: Glucose Point of Care 162 mg/dl (65-105)
[2020-08-28 17:18] LABS: Glucose Point of Care 124 mg/dl (65-105)
[2020-08-28 17:38] LABS: Glucose Point of Care 148 mg/dl (65-105)
[2020-08-28] MEDS: ATORVASTATIN 20 MG TABLET PO (19:58)
[2020-08-28 21:18] LABS: Glucose Point of Care 73 mg/dl (65-105)
[2020-08-29] VITALS (7 sets, daily range): BP systolic 124–148; BP diastolic 70–79; PULSE 68–103; RESP 16–18; TEMP 36.1–36.7; O2SAT 97–100
[2020-08-29] MEDS: SODIUM CHLORIDE 0.9% IV 1,000 ML 125 ML IV CONT ×2 (05:09→12:51)
[2020-08-29 05:19] LABS: Hematocrit 29.8 % (42.0-52.0); Hemoglobin 9.7 g/dL (14.0-18.0); Mean Corpuscular HGB Conc 32.6 g/dl (32-36); Mean Corpuscular Hemoglobin 29.8 pg (26-34); Mean Corpuscular Volume 91.7 fl (80-100); Mean Platelet Volume 9.6 fl (7.4-10.4); Platelet Count Result 187 k/mm3 (150-375); Red Blood Count 3.25 M/mm3 (4.6-6.20)
[2020-08-29 05:30] LABS: Albumin Level 3.7 g/dL (3.5-5.1); Anion Gap 8 mmol/L (8-16); Blood Urea Nitrogen 32 mg/dL (9-20); Calcium 8.9 mg/dL (8.4-10.2); Carbon Dioxide 22 mmol/L (22-30); Chloride 112 mmol/L (98-107); Estimated CRCL calculation 58 ml/min; Estimated Glomerular Filt Rate > 60; Glucose 150 mg/dL (65-110); Magnesium 1.9 mg/dL (1.6-2.3); Potassium 4.7 mmol/L (3.4-5.0); Sodium 142 mmol/L (137-145)
[2020-08-29 08:49] LABS: Glucose Point of Care 108 mg/dl (65-105)
[2020-08-29] MEDS: ASPIRIN 81 MG ENTERIC TABLET PO (10:14)
[2020-08-29] MEDS: TAMSULOSIN HCL 0.4 MG CAPSULE PO (10:14)
[2020-08-29] MEDS: ENOXAPARIN 30 MG/0.3 ML SYRINGE SUB-Q (10:14)
[2020-08-29] MEDS: GABAPENTIN 300 MG CAPSULE 600 MG PO ×3 (10:14→17:30)
[2020-08-29] MEDS: INSULIN HUMAN NPH (*BKC) 100 UNITS/ML 15 UNITS SUB-Q ×2 (10:16→17:27)
[2020-08-29 13:38] LABS: Glucose Point of Care 146 mg/dl (65-105)
--- NOTE | 2020-08-29 14:36 | PM.DS ---
DS: Admitting Diagnosis Admitting Diagnosis acute kidney injury/dehydration DS: Discharge Diagnosis Discharge Diagnosis (1) Acute kidney injury: Code(s): N17.9 - Acute kidney failure, unspecified Status: Acute Assessment and Plan: CT A/P on admission showing No nephrolithiasis, hydronephrosis or acute intra-abdominal findings. Most likely due to dehydration and concomitant use of Benji inhibitors and metformin. Patient received 2 L of normal saline in the ER. Creatinine improved to 2.7 today Continue to hold the patient's home lisinopril and metformin. Continue IV fluid hydration with normal saline (2) Hyperkalemia: Code(s): E87.5 - Hyperkalemia Status: Acute Assessment and Plan: Potassium 5.1 on admission No change on levels drawn today No changes by telemetry Repeat potassium later today (3) Chest pain: Qualifiers: Chest pain type: unspecified Qualified Code(s): R07.9 - Chest pain, unspecified Code(s): R07.9 - Chest pain, unspecified Status: Acute Assessment and Plan: Patient presents with chest pain Troponin negative x 3. EKG showing ST elevation felt to be repolerization. CXR clear [place] CP is noncardiac chest pain. Chest pain is more likely due to myalgias associated with his dehydration and acute kidney injury. Follow (4) Dehydration: Code(s): E86.0 - Dehydration Status: Acute Assessment and Plan: As above. Continue normal saline (5) Type 2 diabetes mellitus: Code(s): E11.9 - Type 2 diabetes mellitus without complications Status: Acute Assessment and Plan: A1c 8.4. Glucose reviewed on 08/28 and in good control Will hold the patient's metformin and Jardiance. Will continue NPH insulin and Accu-Cheks a.c. HS with low-dose sliding scale insulin and hypoglycemia protocol (6) DVT prophylaxis: Code(s): Z29.9 - Encounter for prophylactic measures, unspecified Status: Acute Assessment and Plan: Lovenox DS: Summary Hospital Course Hospital Course: 50-year-old male with a past medical history of hyperlipidemia, hypertension, type 2 diabetes mellitus and prior episodes of acute renal failure who presented to the ER with generalized body aches and malaise. patient was treated with IV fluids since admission. Upon admission to the ED the patient's creatinine was 3.30 and is down to 1.10 today. All other labs have been stable throughout the admission. CT was unremarkable for any abdominal findings, chest x-ray had no acute cardiac or pulmonary findings. Evaluation of chest pain was also performed while admitted. Troponin eyes were negative x3 electrolytes were stable. Potassium was elevated at 5.2 however is down to 4.7. Patient was educated about drinking fluids while working in hot [place]. Patient denies chest pain, shortness of breath, nausea, vomiting, diarrhea, sweats, chills, fevers, headaches, syncope, weakness or fatigue. Status at Discharge Functional status at discharge: independent ambulation Overall status at discharge: patient is back to baseline Time Spent with Patient Time attestation: Total time spent providing and/or coordinating discharge services: 48 minutes Time spent: Greater than 30 minutes Specific discharge activities: chart review, lab review, diagnostic testing, care coordinating, ordering, documentation, education. Exam Const: General: cooperative, healthy appearing, comfortable, no acute distress, well developed, alert, awake and Physically active Nutritional Appearance: well nourished, obese and overweight Orientation/consciousness: oriented to person, oriented to place, oriented to time and patient oriented x3 Limitations: no limitations HENMT: Head: normal to inspection Ears: hearing grossly normal bilaterally General nose exam: Normal external nose present Mouth: Yes Normal oral and palatal mucosa present, Yes lip
[2020-08-29 17:39] LABS: Glucose Point of Care 137 mg/dl (65-105)
== END 2020-08-29 16:50 | disposition home or self-care (01) | DRG 469 ==
LOC: ANHED 08-28 00:40 → ANHIMU 08-28 03:18
PROVIDERS: Admitting Provider Internal Medicine; Emergency Provider Emergency Medicine; PCP Registered Nurse; Visit Provider Internal Medicine
DX: N17.9 Acute kidney failure, unspecified (principal); E86.0 Dehydration; E87.5 Hyperkalemia; R07.89 Other chest pain; E11.42 Type 2 diabetes mellitus with diabetic polyneuropathy; I10 Essential (primary) hypertension; E78.5 Hyperlipidemia, unspecified; F17.210 Nicotine dependence, cigarettes, uncomplicated; D50.9 Iron deficiency anemia, unspecified; N40.0 Benign prostatic hyperplasia without lower urinary tract symptoms; Z79.4 Long term (current) use of insulin; Z79.82 Long term (current) use of aspirin
CPT/HCPCS: 36415; 71046; 74176; 80048; 80069; 80076; 81001; 82550; 82948; 83036; 83605; 83735; 84132; 84484; 85025; 85027; 85610; 85730; 87081; 87086; 87088; 87804; 87880; 93005; 96361; 96374; 96375; 99285; A9270; J0780; J1200; J1650; J1815; J1885; J7030

== ENCOUNTER 2024-05-17 16:47 | Outpatient (CLI) | payer OTHER, SELFPAY ==
--- NOTE | ~2024-05-17 | CT_ITS ---
CT Scan of the Chest without Contrast: Clinical Indication: Lung cancer screening, nicotine dependence Technique: Contiguous sections were acquired throughout the chest without intravenous contrast. Dose reduction technique was used on this scan by utilizing automated exposure control and iterative recon struction technique. The dose-length product (DLP) was 322.08 mGy-cm. Findings: There is no evidence of any significant mediastinal, hilar or axillary lymphadenopathy. Mild coronary artery calcification present. There is no evidence of pleural or pericardial effusion. The lungs are clear. No pulmonary nodules or infiltrates are noted. Images through the upper abdomen reveal no abnormalities. Impression: Lung RADS 1: Negative. 12 month follow-up screening CT advised. Reviewed, dictated and finalized at location . Impression: Lung RADS 1: Negative. 12 month follow-up screening CT advised.
--- OUTSIDE RECORDS SUMMARY | 2024-05-17 16:51 | XMS_ITS | Referral Summary ---
Author Organization [facility] Address [address] [place] [address] Care Team Providers Care Political Science Instructor Name Role Phone No, Physician Primary Care Provider [phone] Allergies No known active allergies Medications hydrocortisone (ANUSOL-HC) 2.5 % rectal cream Insert into the rectum 2 (two) times a day 30 g 1 Active polyethylene glycol (MIRALAX) 17 gram packetIndicati ons:constipati on Take 1 packet (17 g total) by mouth daily 20 packet 1 Active gabapentin (NEURONTIN) 600 mg tablet Take 1 tablet (600 mg total) by mouth 3 (three) times a day Active tamsulosin (FLOMAX) 0.4 mg extended release capsule 1 capsule (0.4 mg total) daily Active albuterol HFA (PROVENTIL HFA,VENTOLIN HFA,PROAIR HFA) 90 mcg/actuation inhaler Inhale 2 puffs every 6 (six) hours as needed Active OneTouch Verio test strips strip as directed 3 Active finasteride (PROSCAR) 5 mg tablet Take 1 tablet (5 mg total) by mouth daily Active NovoLIN N 100 unit/mL vial for injection INJECT 40 UNITS SUBCUTANEOUSLY TWICE DAILY BEFORE MEALS FOR DIABETES Active TRUEplus Lancets 28 gauge misc as directed 3 Active TRUEplus Pen Needle 31 gauge x 5/16 needle USE DIRECTED TWO TIMES A DAY 3 Active telmisartan (MICARDIS) 20 mg tablet Take 1 tablet (20 mg total) by mouth daily Active TRUEplus Insulin 0.5 mL 31 gauge x 5/16 syringe USE DIRECTED TWICE DAILY 3 Active Jardiance 25 mg tablet TAKE ONE TABLET BY MOUTH EVERY DAY FOR DIABETES 3 Active Invokana 300 mg tablet TAKE ONE TABLET BY MOUTH EVERY DAY FOR DIABETES 4 Active ergocalciferol (VITAMIN D) 50,000 unit capsule TAKE ONE CAPSULE BY MOUTH ONCE A WEEK ON THE SAME DAY EACH WEEK FOR VITAMIN D DEFICIENCY. 4 Active lisinopriL (PRINIVIL,ZEST RIL) 2.5 mg tablet Take 1 tablet (2.5 mg total) by mouth daily Active Levemir FlexPen 100 unit/mL (3 mL) pen for injection Inject 35 Units under the skin nightly 4 Active traMADoL (ULTRAM) 50 mg tablet Take 1 tablet (50 mg total) by mouth every 6 (six) hours 8 tablet 4 Active acetaminophen (TYLENOL) 500 mg tablet Take 1 tablet (500 mg total) by mouth every 6 (six) hours as needed for pain 30 tablet 4 Active ibuprofen (ADVIL,MOTRIN) 600 mg tablet Take 1 tablet (600 mg total) by mouth every 6 (six) hours as needed for pain 4 Active metFORMIN XR (GLUCOPHAGE XR) 500 mg 24 hr tablet TAKE 4 TABLETS BY MOUTH EVERY DAY EVERY EVENING WITH FOOD FOR DIABETES 4 Active Active Problems Problem Noted Date Diagnosed Date Guyon syndrome, 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 This is likely to take another three weeks to solidify. Would recommend follow-up films in three weeks. Complex tear of triangular fibrocartilage of rig ht wrist 01/24/2023 Assessment & Plan (01/24/2023 9:36 AM OIL AND GAS DRAFTER): By MRI the patient had a partial-thickness tear of the extensor carpi ulnaris longitudinally with a likely acute tear of the triangular fibrocartilage. Would recommend evaluation by a hand specialist as these may require surgical attention. He should continue with the splint and work restrictions were provided Right wrist pain 01/06/2023 Assessment & Plan (01/06/2023 9:03 AM OIL AND G[employer] DRAFTER): Patient likely has a fracture of the triquetrum and possible scapholunate ligament disruption. I would recommend obtaining an MRI to evaluate the integrity of the structures to initiate appropriate treatment. A wrist control splint was provided for support. The patient should not be performing any activities with the right arm and if light duty is not available may need to be off of work. Light duty restrictions were written for the next three weeks. He should not perform any lifting pushing pulling or repetitive activities with the right hand. Right wrist fracture, closed, initial encounter 12/29/2022 Crushing injury of right wrist 12/29/2022 Abrasion of right wrist 12/29/2022 Anemia in chronic kidney disease 10/20/2022 Essential hypertension 10/20/2022 Proteinuria 10/20/2022 Vitamin D deficiency 10/20/2022 Chronic kidney disease, stage 2 (mild) Type 2 diabetes mellitus 06/29/2022 Social History Tobacco Use Types Packs/Day Years Used Date Smoking Tobacco: Unknown Tobacco Cessation:Counseling Given: Not Answered AUDIT-C Answer Date Recorded Q1: How often do you have a drink containing alc ohol? Never 08/15/2023 Average Number of Drinks Not on file 024 Frequency of Binge Drinking Not on file 09/2023 Personal Safety Answer Date Recorded Have you ever been in or are you currently in a harmful physical or emotional relationship or is someone making you feel afraid or unsafe? Denies 08/15/2023 Sex and Gender Information Value Date Recorded Sex Assigned at Not on file Legal Sex Male 12:56 PM CDT Gender Identity Not on file Sexual Orientation Not on file Last Filed Vital Signs Vital Sign Reading Time Taken Comments Blood Pressure 132/79 08/15/2023 1:54 PM CDT Pulse 90 08/15/2023 1:54 PM CDT Temperature 36.6 C (97.8 F) 08/15/2023 1:00 PM CDT Respiratory Rate 18 08/15/2023 1:54 PM CDT Oxygen Saturation 92% 08/15/2023 1:54 PM CDT Inhaled Oxygen Concentration - - Weight 111.1 kg (245 lb) 08/15/2023 7:18 AM CDT Height 160 cm (5' 3 ) 08/15/2023 7:18 AM CDT Body Mass Index 43.4 08/15/2023 7:18 AM CDT Plan of Treatment Not on file Procedures Procedure Name Priority Date/Time Associated Diagnosis Comments EGFR STAT 07/20/2020 6:18 PM CDT HEMOGLOBIN A1C Routine 09/09/2018 5:34 AM CDT from Last 3 Months or Most Recently Relevant to Health Maintenance Results * eGFR (07/20/2020 6:18 PM CDT) eGFR 70 mL/min/1.7 3 m2 [facility] Comment: Interpretive Data Reference Interval Normal >/= 90 mL/min/1.73m2 Mildly decreased* 60 - 89 mL/min/1.73m2 Mildly to moderately decreased 45 - 59 mL/min/1.73m2 Moderately to severely decreased 30 - 44 mL/min/1.73m2 Severely decreased 15 - 29 mL/min/1.73m2 Kidney Failure < 15 mL/min/1.73m2 *Relative to young adult level Estimated glomerular filtration rate is determined by the CKD-EPI equation recommended by the National Kidney Foundation (KDIGO 2012 Clinical Practice Guideline for the Evaluation and Management of Chronic Kidney Disease. Kidney Intnl Suppl Feb 2012;3:1). The CKD-EPI equation should not be used for patients with unstable renal function and has not been validated in children and those over 70. Current interpretive data was last reviewed 2020 Blood specimen (specimen) 07/20/2020 6:18 PM CDT 07/20/2020 6:20 PM CDT us Christianne AMARAL LAB BLOOD ORDERABLES Final R esult [facility] [address] [facility] [place] [address] * (ABNORMAL) Hemoglobin A1c (09/09/2018 5:34 AM CDT) Hemoglobin A1c % 14.5(H) 4.0 - 5.6 % [facility] Comment: ADA 2016 GUIDELINES: Initial Diagnostic Criteria HbA1c Result: Interpretation: <5.7% Normal 5.7-6.4% At risk for diabetes mellitus >=6.5% Consistent with diabetes mellitus Diabetes monitoring Target value (ADA Recommended) <7% 09/09/2018 5:34 AM CDT 09/09/2018 6:31 AM CDT Narrative Resulting Agency Comment IN us Allan Fajardo MD LAB BLOOD ORDERABLES Final Result [facility] [address] [place], [place] [id number] [place] [address] from Last 3 Months or Most Recently Relevant to Health Maintenance Insurance COMMERCIAL GENERIC [facility] CHOICE PLUS [facility] CHOICE PLUS WORKERS COMPENSATION GENERIC [facility] Care Teams Political Science Instructor Relationship Specialty Start Date End Date No, Physician PCP - General 05/08/18
--- OUTSIDE RECORDS SUMMARY | 2024-05-17 16:51 | XMS_ITS | Clinical Summary ---
Author Organization [facility] Address [address] [place] [address] Care Team Providers Care Promotion Producer Name Role Phone Rosy Dolan PA-C Primary Care Provider Source Comments [facility],non-owned Affiliates and Associated Physician Practices is amultiple site organization consisting of ambulatory clinics and hospital sitesin [place], [place], [place] and [place]. This disclosure is being madepursuant to the Care Everywhere program and may not contain all information available regarding this patient. Last updated 17.[facility] Social History Tobacco Use Types Packs/Day Years Used Date Smoking Tobacco: Never Assessed Sex and Gender Information Value Date Recorded Sex Assigned at Not on file Gender Identity Not on file Sexual Orientation Not on file Plan of Treatment Health Maintenance Due Date Last Done Comments COLOGUARD (AGES 45-75) - COLON CA SCREENING 1968 COLON MONITORING 1968 COLONOSCOPY - COLON CA SCREENING 1968 CT COLONOGRAPHY - COLON CA SCREENING 1968 Colorectal Cancer Screening 1968 FIT - COLON CA SCREENING 1968 FLEX SIG - COLON CA SCREENING 1968 LIPID TESTING 1968 HIV SCREENING 07/28/1983 HEPATITIS C SCREENING 07/23/1986 DTAP/TDAP/TD VACCINES (1 - Tdap) 07/28/1987 HEPATITIS B VACCINE (1 of 3 - 19+ 3-dose series) 07/28/1987 PNEUMOCOCCAL VACCINE 50+ (1 of 1 - PCV) 2018 ZOSTER VACCINE (1 of 2) 2018 COVID-19 VACCINE (3 - season) 2023 08/16/2020, 07/26/2020 DEPRESSION SCREENING 02/08/2024 INFLUENZA VACCINE (Season Ended) 2024 10/27/2022, 01/26/2022, 01/12/2021, Additional history exists HIB VACCINE Aged Out No longer eligi ble based on patient's age to complete this topic HPV VACCINE Aged Out No longer eligi ble based on patient's age to complete this topic MENINGOCOCCAL (Group B) VACCINE SHARED DECISION-MAKING Aged Out No longer eligible based on patient's age to complete this topic MENINGOCOCCAL GROUPS A/C/Y/W VACCINE Aged Out No longer eligible based on patient's age to complete this topic PNEUMOCOCCAL VACCINE Aged Out No long er eligible based on patient's age to complete this topic Care Teams Promotion Producer Relationship Specialty Start Date End Date Rosy Dolan PA-C [address] [place] [phone] PCP - General Physician Environmental Engineering Assistant 10/09/22
--- OUTSIDE RECORDS SUMMARY | 2024-05-17 16:51 | XMS_ITS | Clinical Summary ---
Author Organization [facility] Address [address], [place] [address] Phone Care Team Providers Care Advertisement Compositor Name Role Phone Unavailable Primary Care Provider Unavailabl e Allergies No known active allergies Medications albuterol HFA (PROVENTIL HFA) 108 (90 Base) MCG/ACT inhaler Inhale 2 puffs every 6 (six) hours if needed for wheezing Active aspirin (ST RICK) 81 MG EC tablet Take 81 mg by mouth 1 (one) time each day Active atorvastatin (LIPITOR) 40 MG tablet Take 40 mg by mouth 1 (one) time each day Active finasteride (PROSCAR) 5 MG tablet Take 5 mg by mouth 1 (one) time each day Active fluticasone HFA (FLOVENT HFA) 44 MCG/ACT inhaler Inhale 2 puffs in the morning and 2 puffs before bedtime. Active gabapentin (NEURONTIN) 600 MG tablet Take 600 mg by mouth in the morning and 600 mg in the evening and 600 mg before bedtime. Active Empagliflozin (Jardiance) 25 MG tablet Take 25 mg by mouth in the morning. Active insulin detemir (LEVEMIR) 100 UNIT/ML injection Inject 34 Units under the skin every night Active telmisartan (MICARDIS) 20 MG tablet Take 20 mg by mouth 1 (one) time each day Active insulin NPH, Isophane, (HumuLIN) 100 UNIT/ML injection Inject 40 Units under the skin in the morning and 40 Units in the evening. Inject before meals. Active tamsulosin (FLOMAX) 0.4 MG 24 hr capsule Take 0.4 mg by mouth 1 (one) time each day Active Active Problems Problem Noted Date Diagnosed Date Anemia in chronic kidney disease 10/20/2022 Proteinuria 10/20/2022 Vitamin D deficiency 10/20/2022 Essential hypertension 10/20/2022 Chronic kidney disease, stage 2 (mild) 05/23/202 3 Type 2 diabetes mellitus 06/29/2022 Resolved Problems Problem Noted Date Diagnosed Date Resolved Date Hyperlipidemia 06/29/2022 10/20/2022 Family History Medical History Relation Comments Diabetes Brother Diabetes Father Hyperlipidemia Mother Myocardial infarction Paternal Grandfather Relation Status Comments Brother Father Mother Paternal Grandfather Social History Tobacco Use Types Packs/Day Years Used Date Smoking Tobacco: Every Day Cigarettes Smokeless Tobacco: Never Tobacco Cessation:Ready to Q uit: Not Asked; Counseling Given: Not Answered Sex and Gender Information Value Date Recorded Sex Assigned at Not on file Legal Sex Male 4:20 PM MDT Gender Identity Not on file Sexual Orientation Not on file Last Filed Vital Signs Vital Sign Reading Time Taken Comments Blood Pressure 129/75 07/01/2022 3:27 PM CDT Pulse 91 07/01/2022 3:27 PM CDT Temperature - - Respiratory Rate - - Oxygen Saturation - - Inhaled Oxygen Concentration - - Weight 108 kg (238 lb 14.4 oz) 07/01/2022 3:27 P M CDT Height 160 cm (5' 3 ) 07/01/2022 3:19 PM CDT Body Mass Index 42.32 07/01/2022 3:19 PM CDT Plan of Treatment Health Maintenance Due Date Last Done Comments Diabetic Foot Exam 1978 Ophthalmology Exam 1978 Pneumococcal PPSV23 Highest Risk Adult (1 of 3 - PCV13 ) 07/28/1987 Influenza Vaccine (Season Ended) [address] [place] [address] [place] [address]
--- OUTSIDE RECORDS SUMMARY | 2024-05-17 16:51 | XMS_ITS | Clinical Summary ---
Author Organization [facility] Address [address] [place] [address] Care Team Providers Care Public Health Worker Name Role Phone No, Physician Primary Care Provider [phone] Allergies No known active allergies Medications hydrocortisone [...] 01/24/2023 Assessment & Plan (01/24/2023 9:36 AM FACILITIES COORDINATOR): MRI did reveal evidence of a nondisplaced distal radius fracture. This is likely to take another three weeks to solidify. Would recommend follow-up films in three weeks. Complex tear of triangular fibrocartilage of rig ht wrist 01/24/2023 Assessment & Plan (01/24/2023 9:36 AM FACILITIES COORDINATOR): By MRI the patient had a partial-thickness tear of the extensor carpi ulnaris longitudinally with a likely acute tear of the triangular fibrocartilage. Would recommend evaluation by a hand specialist as these may require surgical attention. He should continue with the splint and work restrictions were provided Right wrist pain 01/06/2023 Assessment & Plan (01/06/2023 9:03 AM FACILITIES COORDINATOR): Patient likely has a fracture of the [...] 10/20/2022 Chronic kidney disease, stage 2 (mild) 3 Type 2 diabetes mellitus 06/29/2022 Medical History Medical History Date Comments Renal disorder Diabetes mellitus (HCC) Hypertension Hyperlipidemia Social History Tobacco Use Types Packs/Day Years [...] on file Sexual Orientation Not on file Obstetrics History Last Filed Vital Signs Vital Sign Reading [...] 08/15/2023 7:18 AM CDT Plan of Treatment Health Maintenance Due Date Last Done Comments Albumin Creatinine Ratio, Urine 1968 Colon Cancer Screening-Colonoscopy 1968 Depression Screening 1968 Hepatitis C Screening 1968 Prostate Cancer Screening-PSA 1968 Dilated Eye Exam 1968 Foot Exam 1968 Lipid Panel 1968 DTaP/Tdap/Td Vaccine (1 - Tdap) 07/28/1979 Hepatitis B Screening 1986 Regular Well Visit/Exam 18-64 1986 Pneumococcal vaccine <65 (1 of 2 - PCV) 07/28/1987 Zoster Vaccine (1 of 2) 2018 Hemoglobin A1C 03/12/2019 09/09/2018 eGFR 07/20/2021 07/20/2020 Influenza Vaccine (#1) 2023 Procedures Procedure Name Priority Date/Time Associated Diagnosis Comments EGFR STAT 07/20/2020 6:18 PM CDT HEMOGLOBIN A1C Routine 09/09/2018 5:34 AM CDT from Last 3 Months or Most Recently Relevant to Health Maintenance Results * eGFR (07/20/2020 6:18 PM CDT) eGFR 70 mL/min/1.7 3 m2 [facility] Comment: Interpretive Data Reference Interval Normal [...] AMARAL LAB BLOOD ORDERABLES Final R esult Performing Organization Address City/[facility]/ZIP Co de Phone Number [address] Department [place] [address] * (ABNORMAL) Hemoglobin A1c (09/09/2018 5:34 AM CDT) Hemoglobin A1c % 14.5(H) 4.0 - 5.6 % [facility] Comment: ADA 2016 GUIDELINES: Initial Diagnostic Criteria HbA1c Result: Interpretation: <5.7% Normal 5.7-6.4% At risk for diabetes mellitus >=6.5% Consistent with diabetes mellitus Diabetes monitoring Target value (ADA Recommended) <7% 09/09/2018 5:34 AM CDT 09/09/2018 6:31 AM CDT Narrative Resulting Agency Comment IN Allan Fajardo MD LAB BLOOD ORDERABLES Final Result Performing Organization Address City/[facility]/ZIP Co de Phone Number [place] [phone] [address] [phone] from Last 3 Months or Most Recently Relevant to Health Maintenance Insurance [employer] [facility] [place] [address] [place] [id number] Care Teams Public Health Worker Relationship Specialty Start Date End Date No, Physician PCP - General 05/08/18
--- OUTSIDE RECORDS SUMMARY | 2024-05-17 16:51 | XMS_ITS | Clinical Summary ---
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 Gender Identity Not on file Sexual Orientation Not on file Plan of Treatment Health Maintenance Due Date Last Done Comments Colorectal Cancer Screening Colonoscopy (10 Years) 1968 Annual Physical 07/28/1971 Hepatitis C 1986 DTaP, Tdap and Td Vaccines ( 1 - Tdap) 07/28/1987 Hepatitis B Vaccines (1 of 3 - 19+ 3-dose series) 07/28/1987 Zoster Vaccines (1 of 2) 2018 COVID-19 Vaccine ( - 2023-2 5 season) 2023 Meningococcal B Vaccine Aged Out No l onger eligible based on patient's age to complete this topic Meningococcal Vaccine Aged Out No hunter marina eligible based on patient's age to complete this topic Pneumococcal Vaccine: Pediat rics (0 to 5 Years) and At-Risk Patients (6 to 64 Years) Aged Out No longer eligible b ased on patient's age to complete this topic RSV Immunizations Under 20 Months Aged Out No longer eligible based on patient's age to complete this topic Insurance [facility] [place] [address]
== END 2024-05-17 16:48 | disposition home or self-care (01) ==
PROVIDERS: PCP Registered Nurse; Visit Provider Physician Assistant
DX: Z12.2 Encounter for screening for malignant neoplasm of respiratory organs (principal); F17.210 Nicotine dependence, cigarettes, uncomplicated
CPT/HCPCS: 71271